=== PATIENT | female | born 1945 | race Caucasian/White ===

== ENCOUNTER → 2017-12-09 | Outpatient (CLI) | payer MEDICARE ==
[2016-03-27 15:27] VITALS: BMI 31.4
[~2017-12-09] MED LIST: ACE500 PO; ACET-2043 PO; ADV500/50 INH; ALBU2.5V36 INH; ALBU5SOL17 NEB; ALBU8.5H IH; ALP1 PO; AMOX1TAB3 PO; ASCO-191 PO; ASPI-715 PO; AUG875 PO; AZI250 PO; BACL-1 PO; BEN100 PO; CA C1TAB6 PO; CALC-767 PO; CEP500 PO; CHOL400T29 PO; CITA-128 PO; CITA-139 PO; CYCL10TA29 PO; DIAZ2TAB72 PO; DICL100G39 TOP; DILSR120 PO; DOCU100C49 PO; DOXY-228 PO; DULO60CA7 PO; GAB300 PO; GABA-549 PO; HYDR-3078 PO; HYDR-3083 PO; HYDR-4225 PO; HYDR-4309 PO; IBUP600T22 PO; LEV500 PO; LEVO-3 PO; LEVO150T78 PO; LEVO175T38 PO; LEVO175T42 PO; LEVO200T44 PO; LISI5TAB25 PO; LOR5/325 PO; MAGN250T34 PO; META800T18 PO; METR-160 PO; MOM PO; MULT-885 PO; OMEP-125 PO; OMEP-218 PO; OND4 PO; ONDA4TAB9 PO; OXYC-865 PO; OXYGEN INH; OXYGENHOME INH; PAIN TOP; PAN40 PO; PER PO; PRE10 PO; PRE20 PO; PRED-1 PO; PRED1TAB17 PO; PRED20TA6 PO; PROM-110 PO; PROM118S PO; ROPI1TAB35 PO; ROPI1TAB36 PO; SCOT TD; SERT-173 PO; TIZA2CAP3 PO; TRA50 PO; TRAM-420 PO; TRAZ-133 PO; TRAZ-156 PO; TRAZ50 PO; ZOL5 PO; [UNRECOGNIZED DRUG - CODE] PO; [UNRECOGNIZED DRUG - OTHER] PO
--- NOTE | 2017-12-09 17:46 | RADIOLOGY IMAGING REPORT ---
FACILITY: [facility] - [place] PATIENT NAME: Simona Arciniega : 1945 MR: [id number] V: [id number] EXAM DATE: ORDERING PHYSICIAN: BREONNA GAMBLE TECHNOLOGIST: Location: [facility] - [place] Patient: Simona Arciniega : 1945 Visit/Account:[id number] Date of Sevice: 12/09/2017 Exam type: VENOUS DOPP LOW RIGHT EXTREMIT History: Pain right posterior knee Comparison: None. Findings: The right lower extremity veins were imaged including the right common femoral vein sufficient femora l vein greater saphenous vein, popliteal vein, posterior tibial vein, peroneal vein and anterior tibi al vein revealing no evidence intraluminal thrombi the veins were compressible and demonstrated flow. Incidentally noted is a 2.4 x 0.6 x 2.3 cm popliteal cyst on the right IMPRESSION: 1. No sonographic evidence DVT involving the right lower extremity veins. 2.4 x 0.6 x 2.3 cm right popliteal cyst Report Dictated By: Hyun Melgoza MD at 12/09/2017 5:40 PM Report E-Signed By: Hyun Melgoza MD at 12/09/2017 5:43 PM WSN:[email or web address]
== END ==
LOC: US 08:00
PROVIDERS: ATTEND Nurse Practitioner Family
DX: M71.21 Synovial cyst of popliteal space [Baker], right knee (principal)

== ENCOUNTER 2017-12-18 05:02 | Emergency (ER) | payer MEDICARE ==
[2016-03-27 15:27] VITALS: Wt 46.7 kg
--- NOTE | 2017-12-18 05:13 | ER Report ---
History and Physical Time Seen By MD: 05:12 Hx. of Stated Complaint: PT FELL FROM STANDING AT 2330 LAST NIGHT. HAS BEEN LAYING ON THE FLOOR SINCE THAT TIME. FINALLY WAS ABLE TO CRAWL TO MEDIC ALERT BUTTON. (TIGRE PUENTES MD) HPI/ROS CHIEF COMPLAINT: fall, neck pain and right side pain HISTORY OF PRESENT ILLNESS: This is a 71 year old female. She fell last night at about 2330 hours. [place] dizzy and lost her balance. She does not know if she lost consciousness with the fall, but did lay on the floor all night and fell asleep a few times. She was finally able to crawl out to her medical alert pendant. She had pain in the right arm and leg. She said that her right arm and leg were not working well and could not use them. It is not clear if this is from pain or a functional deficit. At this time, she is moving her arm and leg. She does have some pain in both arm and leg. This seems worst at the hip and knee area. The patient does indicate that she has chronic arthritis pain in arms and legs, and not sure if it is worse now than usual. She was supposed to come to the hospital this afternoon to get an MRI of her right hip, ordered by her primary care provider, Kelly Brewer. She still feels dizzy whenever she moves her head. She is in a cervical collar at this time. She has no numbness in her arms or legs, but states that she will have her arms and legs fall asleep at times. Clarified that she has not had numbness tonight that she is aware of. She has no numbness in face. She denies weakness at this time. (TIGRE PUENTES MD) Allergies: Coded Allergies: No Known Drug Allergies (Verified , 12/18/17) Home Meds Active Scripts Tramadol Hcl (TRAMADOL HCL) 50 Mg Tablet, 50-100 MG PO Q4-6H Y for pain, #20 TAB Prov:MAGUE WESTON DO 09/03/17 Tramadol Hcl (TRAMADOL HCL) 50 Mg Tablet, 50 MG PO Q4-6H Y for prn, #12 TAB Prov:JANELLE HENDRICKS-C 08/30/17 Baclofen (BACLOFEN) 10 Mg Tablet, 10 MG PO TID Y for prn, #30 TAB Prov:JANELLE HENDRICKS PA-C 08/30/17 Scopolamine (TRANSDERM-SCOP) 1.5 Mg Patch, 1.5 MG TD Q3D Y for DIZZINESS, #3 PATCH Prov:DERECK CAPONE 11/16/16 Promethazine Hcl (PROMETHAZINE HCL) 25 Mg Tablet, 25 MG PO Q8H Y for NAUSEA/ VOMITING, #14 TAB Prov:JACQUELINE HERNÁNDEZ MD 07/01/16 Ropinirole Hcl (ROPINIROLE HCL) 1 Mg Tab, 2 MG PO QHS, #30 TAB Prov:LEIGHA FELIZ DO 04/24/14 Reported Medications Ascorbic Acid (VITAMIN C) 1,000 Mg Tablet, 1000 MG PO BID 07/01/16 Hydroxyzine Hcl (HYDROXYZINE HCL) 25 Mg Tablet, 25 MG PO Q4-6H Y for ANXIETY 07/01/16 Cholecalciferol (Vitamin D3) (VITAMIN D3) 400 Unit Tablet, PO DAILY 07/01/16 Albuterol Sulfate 0.083% (ALBUTEROL SULFATE 0.083%) 2.5 Mg/3 Ml Vial.neb, 2.5 MG INH QID Y for SHORTNESS OF BREATH, INH 07/01/16 [fortify] No Conflict Check, [id number] PO DAILY 07/01/16 Levothyroxine Sodium (LEVOTHYROXINE SODIUM) 100 Mcg Tablet, 300 MCG PO QDAY, TAB 07/01/16 Docusate Sodium (STOOL SOFTENER) 100 Mg Capsule, 200 MG PO BID, CAPSULE 03/08/16 Omeprazole (OMEPRAZOLE) 20 Mg Capsule.dr, 1 CAP PO QDAY, CAP 03/08/16 Oxygen (OXYGEN) Inha, 2.5 L INH NIGHT AND PRN, L 03/08/16 Fexofenadine Hcl (ALLERGY RELIEF) 180 Mg Tablet, 180 MG PO DAILY 01/03/16 Trazodone Hcl (TRAZODONE HCL) 50 Mg Tablet, 1 TAB PO QHS, #270 11/10/15 Duloxetine HCl (Duloxetine HCl) 60 Mg Capsule.dr, 1 TAB PO DAILY, #90 11/10/15 Multivitamin (DAILY VITAMIN) 1 Each Tablet, 1 EACH PO DAILY 09/16/14 Acetaminophen (ACETAMINOPHEN) 500 Mg Tablet, 1000 MG PO Q6H Y for PAIN, TAB 09/16/14 Lisinopril (LISINOPRIL) 5 Mg Tablet, 5 MG PO QDAY 09/24/13 Reviewed Nurses Notes: Yes (TIGRE PUENTES MD) Hx Smoking: No Smoking Status: Never Smoker Exposure to Second Hand Smoke?: No Hx Substance Use Disorder: No Hx Alcohol Use: No (TIGRE PUENTES MD) Constitutional Vital Sign - Last 24 Hours 12/18/17 12/18/17 12/18/17 12/18/17 05:04 05:04 05:17 05:30 Temp 97.7 Pulse 73 71 Resp 12 20 B/P (MAP) 128/59 (82) 128/59 121/59 (79) Pulse Ox 97 O2 Delivery Nasal Cannula 12/18/17 12/18/17 12/18/17 12/18/17 05:37 05:47 06:00 06:17 Pulse 72 63 Resp 13 13 B/P (MAP) 115/58 (77) Pulse Ox 96 98 O2 Flow Rate 3.0 12/18/17 12/18/17 06:49 07:00 B/P (MAP) 114/57 (76) 90/44 (59) (YOMAIRA JIMENEZ MD) Physical Exam General Appearance: The patient is alert. No acute distress. Non-toxic in appearance. She is able to talk to me without difficulty. Eyes: Pupils are equal, round. Reactive to light. No pallor, injection or icterus. Extraocular movements are intact. ENT: Mucous membranes are moist. Normal oral mucosa. Posterior oropharynx is normal. Normal tympanic membranes and canals. Neck: Supple and non tender. Respiratory: Lungs are clear to auscultation. Cardiovascular: Regular rate and rhythm. No murmurs, gallops or rubs. Normal capillary refill. Trace edema in bilateral ankles. Gastrointestinal: Abdomen is soft and non tender. Nondistended. Normal active bowel sounds. Neurological: Alert and oriented x3. Cranial nerve without deficits. No focal neurologic deficits in the extremities. Skin: Warm and dry. Musculoskeletal: c-spine with tenderness in the midline. No pain in the thoracic or lumbar spine. She has pain right shoulder and elbow. She has pain in right hip and knee. No pain on left side. Pelvis negative. No rib pain DIFFERENTIAL DIAGNOSIS: After history and physical exam, differential diagnosis was considered for fall, question syncope, pain in the neck and in the right extremities. Uncertain about full loss of consciousness. Concern for rhabdo as she has been lying on the floor most of the night. ([facility]) Medical Decision Making Data Points Result Diagram: 12/18/17 0532 12/18/17 0532 Laboratory Hematology Test 12/18/17 05:32 12/18/17 05:51 Red Blood Count 4.08 M/uL (4.17-5.56) Mean Corpuscular Volume 93.6 fL (80.0-96.0) Mean Corpuscular Hemoglobin 32.8 pg (26.0-33.0) Mean Corpuscular Hemoglobin Concent 35.0 g/dL (32.0-36.0) Red Cell Distribution Width 13.1 % (11.5-14.5) Mean Platelet Volume 6.9 fL (7.2-11.1) Neutrophils (%) (Auto) 68.7 % (39.4-72.5) Lymphocytes (%) (Auto) 18.2 % (17.6-49.6) Monocytes (%) (Auto) 12.2 % (4.1-12.4) Eosinophils (%) (Auto) 0.7 % (0.4-6.7) Basophils (%) (Auto) 0.2 % (0.3-1.4) Nucleated RBC Relative Count (auto) 0.0 /100WBC Neutrophils # (Auto) 2.6 K/uL (2.0-7.4) Lymphocytes # (Auto) 0.7 K/uL (1.3-3.6) Monocytes # (Auto) 0.5 K/uL (0.3-1.0) Eosinophils # (Auto) 0.0 K/uL (0.0-0.5) Basophils # (Auto) 0.0 K/uL (0.0-0.1) Nucleated RBC Absolute Count (auto) 0.00 K/uL Prothrombin Time 13.3 seconds (12.0-14.4) Prothromb Time International Ratio 1.01 Activated Partial Thromboplast Time 29 seconds (23-35) Sodium Level 137 mmol/L (137-145) Potassium Level 3.9 mmol/L (3.5-5.0) Chloride Level 96 mmol/L (98-107) Carbon Dioxide Level 29 mmol/L (22-31) Blood Urea Nitrogen 22 mg/dl (7-18) Creatinine 0.90 mg/dl (0.52-1.04) Glomerular Filtration Rate Calc > 60.0 Random Glucose 84 mg/dl (75-110) Calcium Level 9.6 mg/dl (8.4-10.2) Total Bilirubin 0.5 mg/dl (0.2-1.3) Aspartate Amino Transf (AST/SGOT) 26 U/L (0-35) Alanine Aminotransferase (ALT/SGPT) 32 U/L (0-56) Alkaline Phosphatase 72 U/L (0-126) Total Creatine Kinase 196 U/L (30-135) Troponin I < 0.012 ng/ml Total Protein 6.6 gm/dl (6.3-8.2) Albumin 3.7 g/dl (3.5-5.0) Urine Color Straw Urine Clarity Clear Urine pH 6.0 pH (4.8-9.5) Urine Specific [place] 1.008 Urine Protein Negative mg/dL (NEGATIVE) Urine Glucose (UA) Negative mg/dL (NEGATIVE) Urine Ketones Negative mg/dL (NEGATIVE) Urine Blood Negative (NEGATIVE) Urine Nitrite Negative (NEGATIVE) Urine Bilirubin Negative (NEGATIVE) Urine Urobilinogen Negative mg/dL (0.2-1.9) Urine Leukocyte Esterase Negative (NEGATIVE) Urine RBC None /HPF (0-2/HPF) Urine WBC None /HPF (0-5/HPF) Urine Squamous Epithelial Cells None /LPF (NONE-FEW) Urine Bacteria Negative /HPF (NONE-FEW) Urine Mucus None /HPF (NONE-FEW) Chemistry Test 12/18/17 05:32 12/18/17 05:51 White Blood Count 3.7 k/uL (4.5-11.0) Red Blood Count 4.08 M/uL (4.17-5.56) Hemoglobin 13.4 g/dL (12.0-16.0) Hematocrit 38.2 % (34.0-47.0) Mean Corpuscular Volume 93.6 fL (80.0-96.0) Mean Corpuscular Hemoglobin 32.8 pg (26.0-33.0) Mean Corpuscular Hemoglobin Concent 35.0 g/dL (32.0-36.0) Red Cell Distribution Width 13.1 % (11.5-14.5) Platelet Count 164 K/uL (150-450) Mean Platelet Volume 6.9 fL (7.2-11.1) Neutrophils (%) (Auto) 68.7 % (39.4-72.5) Lymphocytes (%) (Auto) 18.2 % (17.6-49.6) Monocytes (%) (Auto) 12.2 % (4.1-12.4) Eosinophils (%) (Auto) 0.7 % (0.4-6.7) Basophils (%) (Auto) 0.2 % (0.3-1.4) Nucleated RBC Relative Count (auto) 0.0 /100WBC Neutrophils # (Auto) 2.6 K/uL (2.0-7.4) Lymphocytes # (Auto) 0.7 K/uL (1.3-3.6) Monocytes # (Auto) 0.5 K/uL (0.3-1.0) Eosinophils # (Auto) 0.0 K/uL (0.0-0.5) Basophils # (Auto) 0.0 K/uL (0.0-0.1) Nucleated RBC Absolute Count (auto) 0.00 K/uL Prothrombin Time 13.3 seconds (12.0-14.4) Prothromb Time International Ratio 1.01 Activated Partial Thromboplast Time 29 seconds (23-35) Glomerular Filtration Rate Calc > 60.0 Calcium Level 9.6 mg/dl (8.4-10.2) Total Bilirubin 0.5 mg/dl (0.2-1.3) Aspartate Amino Transf (AST/SGOT) 26 U/L (0-35) Alanine Aminotransferase (ALT/SGPT) 32 U/L (0-56) Alkaline Phosphatase 72 U/L (0-126) Total Creatine Kinase 196 U/L (30-135) Troponin I < 0.012 ng/ml Total Protein 6.6 gm/dl (6.3-8.2) Albumin 3.7 g/dl (3.5-5.0) Urine Color Straw Urine Clarity Clear Urine pH 6.0 pH (4.8-9.5) Urine Specific [place] 1.008 Urine Protein Negative mg/dL (NEGATIVE) Urine Glucose (UA) Negative mg/dL (NEGATIVE) Urine Ketones Negative mg/dL (NEGATIVE) Urine Blood Negative (NEGATIVE) Urine Nitrite Negative (NEGATIVE) Urine Bilirubin Negative (NEGATIVE) Urine Urobilinogen Negative mg/dL (0.2-1.9) Urine Leukocyte Esterase Negative (NEGATIVE) Urine RBC None /HPF (0-2/HPF) Urine WBC None /HPF (0-5/HPF) Urine Squamous Epithelial Cells None /LPF (NONE-FEW) Urine Bacteria Negative /HPF (NONE-FEW) Urine Mucus None /HPF (NONE-FEW) Coagulation Test 12/18/17 05:32 Prothrombin Time 13.3 seconds Prothromb Time International Ratio 1.01 Activated Partial Thromboplast Time 29 seconds Urinalysis Test 12/18/17 05:51 Urine Color Straw Urine Clarity Clear Urine pH 6.0 pH (4.8-9.5) Urine Specific [place] 1.008 Urine Protein Negative mg/dL (NEGATIVE) Urine Glucose (UA) Negative mg/dL (NEGATIVE) Urine Ketones Negative mg/dL (NEGATIVE) Urine Blood Negative (NEGATIVE) Urine Nitrite Negative (NEGATIVE) Urine Bilirubin Negative (NEGATIVE) Urine Urobilinogen Negative mg/dL (0.2-1.9) Urine Leukocyte Esterase Negative (NEGATIVE) Urine RBC None /HPF (0-2/HPF) Urine WBC None /HPF (0-5/HPF) Urine Squamous Epithelial Cells None /LPF (NONE-FEW) Urine Bacteria Negative /HPF (NONE-FEW) Urine Mucus None /HPF (NONE-FEW) (YOMAIRA JIMENEZ MD) EKG/Imaging EKG Interpretation 12 lead EKG: Rhythm: normal sinus rhythm, rate 71 [place]: normal QRS: normal ST segments: normal (TIGRE PUENTES MD) ED Course/Re-evaluation Clinical Indication for ER IV: IV Access (TIGRE PUENTES MD) ED Course ED clinical course medical decision making 8-year-old female fall from standing had C-spine chest abdomen pelvis T and L-spine CTs including multiple x-rays were performed negative for any fractures dislocation subluxation or abnormality she'll be ambulatory prior to discharge discharged back to care facility with fall precautions Decision to Disposition Date: Dec 18, 2017 Decision to Disposition Time: 08:19 (YOMAIRA JIMENEZ MD) Depart Departure Latest Vital Signs Vital Signs Date Time Temp Pulse Resp B/P (MAP) Pulse Ox O2 Delivery O2 Flow Rate FiO2 12/18/17 07:00 90/44 (59) 12/18/17 06:17 63 13 98 12/18/17 05:37 3.0 12/18/17 05:04 97.7 Nasal Cannula (YOMAIRA JIMENEZ MD) Impression: Primary Impression: Fall Condition: Improved Disposition: HOME OR SELF-CARE Referrals: KELLY BREWER (PCP) 5 Days Patient Instructions: Fall Prevention (DC) TIGRE PUENTES MD Dec 18, 2017 05:13 YOMAIRA JIMENEZ MD Dec 18, 2017 08:21
--- NOTE | 2017-12-18 05:24 | EKG ---
FACILITY: [facility] PATIENT NAME: ROSALINDA WILLSON : [id number] MR: [id number] V: [id number] EXAM DATE: ORDERING PHYSICIAN: TIGRE PUENTES TECHNOLOGIST: HAMZAH Test Reason : NEURO Blood Pressure : / mmHG Vent. Rate : 071 BPM Atrial Rate : 071 BPM P-R Int : 152 ms QRS Dur : 076 ms QT Int : 414 ms P-R-T Axes : 063 036 063 degrees QTc Int : 449 ms Sinus rhythm Possible left atrial enlargement Decreased R wave progression anteriorly Nonspecific ST findings inferior leads Confirmed by MATTHEW GRIFFIN ([id number]) on 12/18/2017 6:44:02 AM Referred By: Confirmed By:MATTHEW GRIFFIN
[2017-12-18] MEDS ORDERED: IOPAMIDOL 76% 75 ML INFUS BTL 75 ML ONE (05:33)
[2017-12-18 05:38] LABS: PLATELET COUNT, AUTOMATED 164 K/uL (150-450)
[2017-12-18 05:51] LABS: INR 1.01
--- NOTE | 2017-12-18 06:13 | RADIOLOGY IMAGING REPORT ---
FACILITY: [facility] - [place] PATIENT NAME: Simona Arciniega : 1945 MR: [id number] V: [id number] EXAM DATE: ORDERING PHYSICIAN: TIGRE PUENTES TECHNOLOGIST: Location: [facility] - [place] Patient: Simona Arciniega : 1945 Visit/Account:[id number] Date of Sevice: 12/18/2017 CHEST SINGLE AP 12/18/2017 05:13 hours. HISTORY: Fall. Right hip pain. COMPARISON: 11/16/2016 and studies dating to 10/07/2005. TECHNIQUE: Portable AP view of the chest. FINDINGS: Tubes/lines/hardware: There are a partially visualized plate and screws from anterior cervical fusion . There are external chest leads. Pulmonary: There is elevation the right hemidiaphragm, unchanged. Lungs are clear. Vasculature is acc entuated due to supine AP radiograph. There is no pneumothorax or pleural effusion. Cardiomediastinal: Cardiac and mediastinal silhouettes are within normal limits. There is mild aortic calcification. Bones/soft tissues: No acute osseous abnormality. The visible abdomen is normal. There are surgical c lips in the right upper quadrant. IMPRESSION: 1. No acute cardiopulmonary process. Report Dictated By: Margot Bell at 12/18/2017 6:06 AM Report E-Signed By: Margot Bell at 12/18/2017 6:08 AM WSN:[id number]
--- NOTE | 2017-12-18 06:14 | RADIOLOGY IMAGING REPORT ---
FACILITY: [facility] - [place] PATIENT NAME: Simona Arciniega : 1945 MR: [id number] V: [id number] EXAM DATE: ORDERING PHYSICIAN: TIGRE PUENTES TECHNOLOGIST: Location: [facility] - [place] Patient: Simona Arciniega : 1945 Visit/Account:[id number] Date of Sevice: 12/18/2017 HIP RIGHT HISTORY: Fall. Right hip pain. COMPARISON: CT abdomen and pelvis 07/01/2016. There are bilateral hip x-rays from 03/04/2014, the imag es are not currently available. TECHNIQUE: AP view of the pelvis and crosstable lateral view of the right hip. FINDINGS: There is motion artifact on the crosstable lateral view, and the patient's pannus projects over the femoral head and neck, mildly limiting evaluation. There is no fracture or dislocation. The sacroiliac joints are patent without widening. There is no pubic diastases. There are pelvic phleboli ths. There is moderate to severe degenerative change of the visible lumbar spine. IMPRESSION: 1. No acute osseous abnormality of the right hip. Report Dictated By: Margot Bell at 12/18/2017 6:08 AM Report E-Signed By: Margot Bell at 12/18/2017 6:11 AM WSN:[id number]
--- NOTE | 2017-12-18 07:37 | RADIOLOGY IMAGING REPORT ---
FACILITY: [facility] - [place] PATIENT NAME: Simona Arciniega : 1945 MR: [id number] V: [id number] EXAM DATE: ORDERING PHYSICIAN: TIGRE PUENTES TECHNOLOGIST: [place] [facility] [place]ona Arciniega : 1945 Visit/Account:[id number] Date of Sevice: 12/18/[address]: Indication: Injury. Technique: Contiguous axial sections were obtained from the base to the vertex without contrast enhan cement. One of the following dose optimization techniques was utilized in the performance of this exam: Autom ated exposure control; adjustment of the mA and/or kV according to the patient's size; or use of an i terative reconstruction technique. Specific details can be referenced in the facility's radiology CT exam operational policy. Comparison: 11/16/2016 Findings: There is no evidence of intra-axial or extra-axial hemorrhage. No focal areas of decreased or increased attenuation are identified. There is no evidence of mass, edema, or shift of the midline structures. The size, shape, and configuration of the ventricular system are normal. The skeletal st ructures are intact and unremarkable. There is no evidence of fracture or other acute deformity. The visualized paranasal sinuses and mastoid air cells are clear. Impression: No acute deformity or significant change. Report Dictated By: Og Poe MD at 12/18/2017 7:28 AM Report E-Signed By: Og Poe MD at 12/18/2017 7:32 AM WSN:[id number]
--- NOTE | 2017-12-18 07:41 | RADIOLOGY IMAGING REPORT ---
FACILITY: [facility] PATIENT NAME: Simona Arciniega : 1945 MR: [id number] V: [id number] EXAM DATE: ORDERING PHYSICIAN: TIGRE PUENTES TECHNOLOGIST: Location: [facility] Patient: Simona Arciniega : 1945 Visit/Account:[id number] Date of Sevice: 12/18/2017 CT of the cervical spine without contrast: Indication: Injury. Technique: Helical CT was performed from the base of the skull through the upper thoracic spine witho ut contrast. Axial, coronal, and sagittal reconstructions are reviewed. One of the following dose optimization techniques was utilized in the performance of this exam: Autom ated exposure control; adjustment of the mA and/or kV according to the patient's size; or use of an i terative reconstruction technique. Specific details can be referenced in the facility's radiology C T exam operational policy. Comparison: 08/30/2017 Findings: There is no evidence of fracture, compression, subluxation, or other acute deformity. There are stable postoperative changes related to anterior fusion from C5 through C7. There are stable deg enerative changes at C1-C2 and in the posterior elements throughout the cervical region. There is uni form mineralization. The skeletal structures are otherwise unremarkable. No paraspinal soft tissue ab normalities are identified. IMPRESSION: No evidence of fracture or acute deformity. No significant change. Report Dictated By: Og Poe MD at 12/18/2017 7:32 AM Report E-Signed By: Og Poe MD at 12/18/2017 7:37 AM WSN:[id number]
[2017-12-18 08:00] VITALS: BP 93/44
--- NOTE | 2017-12-18 08:01 | RADIOLOGY IMAGING REPORT ---
FACILITY: [facility] - [place] PATIENT NAME: Simona Arciniega : 1945 MR: [id number] V: [id number] EXAM DATE: ORDERING PHYSICIAN: TIGRE PUENTES TECHNOLOGIST: Location: [facility] [place] Patient: Simona Arciniega : 1945 Visit/Account:[id number] Date of Sevice: 12/18/2017 CT of the chest, abdomen, and pelvis with contrast and reconstructed images of the thoracic spine and lumbar spine: Indication: Injury. Technique: Helical CT was performed through the chest, abdomen, and pelvis following IV contrast enha ncement with 75 cc of Isovue-[id number]. Multiplanar reconstructions are reviewed. One of the following dose optimization techniques was utilized in the performance of this exam: Autom ated exposure control; adjustment of the mA and/or kV according to the patient's size; or use of an i terative reconstruction technique. Specific details can be referenced in the facility's radiology C T exam operational policy. Comparison: 07/01/2016 Findings: Lungs: There is linear parenchymal opacity at the right lung base, compatible with atelectasis. No ot her focal parenchymal opacities are identified. Pleural spaces: There is no evidence of effusion, focal pleural thickening, or pneumothorax. Mediastinum: There is uniform enhancement of the vascular structures. There are no signs of vascular injury. Mild atherosclerotic calcification is observed in the aortic arch. There is atherosclerotic calcification in coronary arteries. The heart size is normal. There is no ev idence of pericardial effusion or soft tissue abnormality. There are no signs of mediastinal hematoma or soft tissue abnormality. Liver: Normal in size, shape, and density. The venous structures are unremarkable, as visualized. Gallbladder and biliary tree: There are surgical clips related to prior cholecystectomy. There is no significant dilatation of the biliary tree. Pancreas: Atrophic, but otherwise unremarkable. Spleen: Normal in size, shape, and density. Adrenal glands: Within normal limits. Kidneys: Normal in size, shape, and density. There are no signs of obstruction. Intestinal structures: Mild diverticulosis in the sigmoid colon appears unchanged. The intestinal str uctures are otherwise unremarkable, as visualized. Urinary bladder: Intact and unremarkable. The lumen appears homogeneous. Pelvic structures: The uterus is absent. There is no evidence of fluid collection or soft tissue abno rmality in the pelvis. Ascites or fluid collections: None seen. Skeletal structures: There are mild/moderate degenerative changes in the thoracic spine. No fracture, subluxation, or or a cute compression deformity is identified. There are no signs of paraspinal soft tissue swelling or he matoma. There is a chronic moderate compression deformity of the L4 vertebral body, unchanged from 2016. No n ew compression fracture, subluxation, or other acute deformity is otherwise noted in the lumbar spine . There are no signs of paraspinal soft tissue swelling or hematoma. The skeletal structures are otherwise intact and unremarkable. There is normal mineralization. No gaurav tructive skeletal lesions are identified. . IMPRESSION: No acute deformity is clearly identified in the chest, abdomen, pelvis, thoracic spine, o r lumbar spine. Report Dictated By: Og Poe MD at 12/18/2017 7:37 AM Report E-Signed By: Og Poe MD at 12/18/2017 7:57 AM WSN:[id number]
--- NOTE | 2017-12-18 08:02 | RADIOLOGY IMAGING REPORT ---
FACILITY: [facility] - [place] PATIENT NAME: Simona Arciniega : 1945 MR: [id number] V: [id number] EXAM DATE: ORDERING PHYSICIAN: TIGRE PUENTES TECHNOLOGIST: Location: [facility] Patient: Simona Arciniega : 1945 Visit/Account:[id number] Date of Sevice: 12/18/2017 CT of the chest, abdomen, and pelvis with contrast and reconstructed images of the thoracic spine and lumbar spine: Indication: Injury. Technique: Helical CT was performed through the chest, abdomen, and pelvis following IV contrast enha ncement with 75 cc of Isovue-370. Multiplanar reconstructions are reviewed. One of the following dose optimization techniques was utilized in the performance of this exam: Autom ated exposure control; adjustment of the mA and/or kV according to the patient's size; or use of an i terative reconstruction technique. Specific details can be referenced in the facility's radiology C T exam operational policy. Comparison: 07/01/2016 Findings: Lungs: There is linear parenchymal opacity at the right lung base, compatible with atelectasis. No ot her focal parenchymal opacities are identified. Pleural spaces: There is no evidence of effusion, focal pleural thickening, or pneumothorax. Mediastinum: There is uniform enhancement of the vascular structures. There are no signs of vascular injury. Mild atherosclerotic calcification is observed in the aortic arch. There is atherosclerotic calcification in coronary arteries. The heart size is normal. There is no ev idence of pericardial effusion or soft tissue abnormality. There are no signs of mediastinal hematoma or soft tissue abnormality. Liver: Normal in size, shape, and density. The venous structures are unremarkable, as visualized. Gallbladder and biliary tree: There are surgical clips related to prior cholecystectomy. There is no significant dilatation of the biliary tree. Pancreas: Atrophic, but otherwise unremarkable. Spleen: Normal in size, shape, and density. Adrenal glands: Within normal limits. Kidneys: Normal in size, shape, and density. There are no signs of obstruction. Intestinal structures: Mild diverticulosis in the sigmoid colon appears unchanged. The intestinal str uctures are otherwise unremarkable, as visualized. Urinary bladder: Intact and unremarkable. The lumen appears homogeneous. Pelvic structures: The uterus is absent. There is no evidence of fluid collection or soft tissue abno rmality in the pelvis. Ascites or fluid collections: None seen. Skeletal structures: There are mild/moderate degenerative changes in the thoracic spine. No fracture, subluxation, or or a cute compression deformity is identified. There are no signs of paraspinal soft tissue swelling or he matoma. There is a chronic moderate compression deformity of the L4 vertebral body, unchanged from 2016. No n ew compression fracture, subluxation, or other acute deformity is otherwise noted in the lumbar spine . There are no signs of paraspinal soft tissue swelling or hematoma. The skeletal structures are otherwise intact and unremarkable. There is normal mineralization. No gaurav tructive skeletal lesions are identified. . IMPRESSION: No acute deformity is clearly identified in the chest, abdomen, pelvis, thoracic spine, o r lumbar spine. Report Dictated By: Og Poe MD at 12/18/2017 7:37 AM Report E-Signed By: Og Poe MD at 12/18/2017 7:57 AM WSN:[id number]
--- NOTE | 2017-12-18 08:02 | RADIOLOGY IMAGING REPORT ---
FACILITY: [facility] PATIENT NAME: Simona Arciniega : 1945 MR: [id number] V: [id number] EXAM DATE: ORDERING PHYSICIAN: TIGRE PUENTES TECHNOLOGIST: Location: [facility] [place] Patient: Simona Arciniega : 1945 Visit/Account:[id number] Date of Sevice: 12/18/2017 CT of the chest, abdomen, and pelvis with contrast and reconstructed images of the thoracic spine and lumbar spine: Indication: Injury. Technique: Helical CT was performed through the chest, abdomen, and pelvis following IV contrast enha ncement with 75 cc of Isovue-370. Multiplanar reconstructions are reviewed. One of the following dose optimization techniques was utilized in the performance of this exam: Autom ated exposure control; adjustment of the mA and/or kV according to the patient's size; or use of an i terative reconstruction technique. Specific details can be referenced in the facility's radiology C T exam operational policy. Comparison: 07/01/2016 Findings: Lungs: There is linear parenchymal opacity at the right lung base, compatible with atelectasis. No ot her focal parenchymal opacities are identified. Pleural spaces: There is no evidence of effusion, focal pleural thickening, or pneumothorax. Mediastinum: There is uniform enhancement of the vascular structures. There are no signs of vascular injury. Mild atherosclerotic calcification is observed in the aortic arch. There is atherosclerotic calcification in coronary arteries. The heart size is normal. There is no ev idence of pericardial effusion or soft tissue abnormality. There are no signs of mediastinal hematoma or soft tissue abnormality. Liver: Normal in size, shape, and density. The venous structures are unremarkable, as visualized. Gallbladder and biliary tree: There are surgical clips related to prior cholecystectomy. There is no significant dilatation of the biliary tree. Pancreas: Atrophic, but otherwise unremarkable. Spleen: Normal in size, shape, and density. Adrenal glands: Within normal limits. Kidneys: Normal in size, shape, and density. There are no signs of obstruction. Intestinal structures: Mild diverticulosis in the sigmoid colon appears unchanged. The intestinal str uctures are otherwise unremarkable, as visualized. Urinary bladder: Intact and unremarkable. The lumen appears homogeneous. Pelvic structures: The uterus is absent. There is no evidence of fluid collection or soft tissue abno rmality in the pelvis. Ascites or fluid collections: None seen. Skeletal structures: There are mild/moderate degenerative changes in the thoracic spine. No fracture, subluxation, or or a cute compression deformity is identified. There are no signs of paraspinal soft tissue swelling or he matoma. There is a chronic moderate compression deformity of the L4 vertebral body, unchanged from 2016. No n ew compression fracture, subluxation, or other acute deformity is otherwise noted in the lumbar spine . There are no signs of paraspinal soft tissue swelling or hematoma. The skeletal structures are otherwise intact and unremarkable. There is normal mineralization. No gaurav tructive skeletal lesions are identified. . IMPRESSION: No acute deformity is clearly identified in the chest, abdomen, pelvis, thoracic spine, o r lumbar spine. Report Dictated By: Og Poe MD at 12/18/2017 7:37 AM Report E-Signed By: Og Poe MD at 12/18/2017 7:57 AM WSN:[id number]
--- NOTE | 2017-12-18 08:03 | RADIOLOGY IMAGING REPORT ---
FACILITY: [facility] PATIENT NAME: Simona Arciniega : 1945 MR: [id number] V: [id number] EXAM DATE: ORDERING PHYSICIAN: TIGRE PUENTES TECHNOLOGIST: Location: [facility] Patient: Simona Arciniega : 1945 Visit/Account:[id number] Date of Sevice: 12/18/2017 RIGHT SHOULDER: Indication: Injury. Technique: 2 views were obtained. Comparison: None. Findings: There is no evidence of fracture, subluxation, or other acute deformity. There are mild deg enerative changes in the acromioclavicular joint. There is uniform mineralization of the skeletal str uctures. No periarticular calcifications or soft tissue abnormalities are identified. IMPRESSION: Negative right shoulder. Report Dictated By: Og Poe MD at 12/18/2017 7:57 AM Report E-Signed By: Og Poe MD at 12/18/2017 7:59 AM WSN:[id number]
--- NOTE | 2017-12-18 08:04 | RADIOLOGY IMAGING REPORT ---
FACILITY: [facility] PATIENT NAME: Simona Arciniega : 1945 MR: [id number] V: [id number] EXAM DATE: ORDERING PHYSICIAN: TIGRE PUENTES TECHNOLOGIST: Location: [facility] - [place], [place] Patient: Simona Arciniega : 1945 Visit/Account:[id number] Date of Sevice: 12/18/2017 RIGHT KNEE: Indication: Injury. Technique: 4 views of the knee were obtained. Comparison: None. Findings: There is no evidence of fracture, dislocation, or other acute deformity. There is mild oste oarthritic joint space narrowing. There is normal mineralization of the skeletal structures. The caitlin articular soft tissues appear unremarkable. IMPRESSION: Mild osteoarthritis. No acute deformity. Report Dictated By: Og Poe MD at 12/18/2017 7:59 AM Report E-Signed By: Og Poe MD at 12/18/2017 8:00 AM WSN:[id number]
--- NOTE | 2017-12-18 08:06 | RADIOLOGY IMAGING REPORT ---
FACILITY: [facility] [place] PATIENT NAME: Simona Arciniega : 1945 MR: [id number] V: [id number] EXAM DATE: ORDERING PHYSICIAN: TIGRE PUENTES TECHNOLOGIST: Location: [facility] [place] Patient: Simona Arciniega : 1945 Visit/Account:[id number] Date of Sevice: 12/18/2017 RIGHT ELBOW: Indication: Injury. Technique: 3 views were obtained. Comparison: None. Findings: There are no signs of fracture, subluxation, or other acute deformity. There are degenerati ve changes around the radial head and coronoid process of the ulna. There is uniform mineralization o f the skeletal structures. There is no evidence of joint effusion or periarticular soft tissue abnorm ality. IMPRESSION: Osteoarthritis. No acute deformity. Report Dictated By: Og Poe MD at 12/18/2017 8:00 AM Report E-Signed By: Og Poe MD at 12/18/2017 8:02 AM WSN:[id number]
== END 2017-12-18 08:34 | disposition home or self-care (01) ==
LOC: ER 05:11
DX: M54.2 Cervicalgia (principal); M79.601 Pain in right arm; M79.604 Pain in right leg; W18.30XA Fall on same level, unspecified, initial encounter
CPT/HCPCS: 36415; 70450; 71045; 71260; 72125; 72129; 72132; 73030; 73080; 73502; 73564; 74177; 81001; 82550; 84484; 85025; 85610; 85730; 93005; 99284; A4353; Q9967; 82040; 82247; 82310; 82374; 82435; 82565; 82947; 84075; 84132; 84155; 84295; 84450; 84460; 84520

== ENCOUNTER → 2017-12-18 | Outpatient (CLI) | payer MEDICARE ==
[2016-03-27 15:27] VITALS: BMI 31.4
[~2017-12-18] MED LIST changes: -CITA-139 PO; +CITA-145 PO
== END ==
LOC: AMB 04:25
PROVIDERS: ATTEND Nurse Practitioner
DX: M25.551 Pain in right hip (principal); M54.2 Cervicalgia; M54.6 Pain in thoracic spine; W18.11XA Fall from or off toilet without subsequent striking against object, initial encounter
CPT/HCPCS: A0425; A0427

== ENCOUNTER → 2017-12-18 | Outpatient (CLI) | payer MEDICARE ==
[2016-03-27 15:27] VITALS: BMI 31.4
[~2017-12-18] MED LIST changes: +CITA-139 PO; -CITA-145 PO
--- NOTE | 2017-12-18 11:56 | RADIOLOGY IMAGING REPORT ---
FACILITY: [facility] PATIENT NAME: Simona Arciniega : 1945 MR: [id number] V: [id number] EXAM DATE: ORDERING PHYSICIAN: BREONNA GAMBLE TECHNOLOGIST: Location: [facility] [place] Patient: Simona Arciniega : 1945 Visit/Account:[id number] Date of Sevice: 12/18/2017 L SPINE W/O CONTRAST COMPARISON: Report from previous exam dated May 24, 2016 Additional pertinent history: Low back pain with radiculopathy and sciatica worse on the right side. Technique: Multiplanar multisequence lumbar spine MRI was performed without gadolinium enhancement. FINDINGS: Vertebral body heights and alignment: Mild to moderate loss of height at the level of L4 Vertebral marrow signal: Mild type I degenerative endplate changes at T11-T12. Distal thoracic cord and conus: Negative. The conus ends at L1-L2. Surrounding soft tissues: Negative. Inspection of the disc spaces reveal the following: L5-S1: Posterior broad-based disc protrusion with facet hypertrophic changes. Moderate bilateral no ral foraminal narrowing with moderate canal stenosis. L4-L5: Posterior broad-based disc protrusion with facet hypertrophic changes. Moderate bilateral no ral foraminal narrowing with mild canal stenosis. L3-L4: Posterior broad-based disc protrusion with ligamentum flavum and facet overgrowth. Moderate c anal stenosis and moderate to severe bilateral neural foraminal narrowing. L2-L3: Posterior broad-based disc protrusion with facet hypertrophic changes. Moderate bilateral no ral foraminal narrowing with mild canal stenosis. L1-L2: Circumferential disc bulging without significant canal or neural foraminal narrowing. T12-L1: Negative. IMPRESSION: 1. Remote appearing mild to moderate compression deformity at the level of L4. 2. Multilevel spondylitic change as discussed above. 3. Findings of moderate canal stenosis at L3-L4 and L5-S1. 4. Multilevel neural foraminal narrowing felt to be potentially most significant at L3-L4 with moder ate to severe bilateral neural foraminal narrowing. Report Dictated By: Federico Mendieta MD at 12/18/2017 11:48 AM Report E-Signed By: Federico Mendieta MD at 12/18/2017 11:52 AM WSN:[id number]
== END ==
LOC: MRI 01:03
PROVIDERS: ATTEND Nurse Practitioner Family
DX: M48.54XA Collapsed vertebra, not elsewhere classified, thoracic region, initial encounter for fracture (principal); M48.07 Spinal stenosis, lumbosacral region
CPT/HCPCS: 72148

== ENCOUNTER → 2018-05-05 | Outpatient (CLI) | payer MEDICARE ==
[2016-03-27 15:27] VITALS: BMI 31.4
[~2018-05-05] MED LIST changes: -CITA-139 PO; +CITA-145 PO; -TRAZ-156 PO; +TRAZ50TA34 PO
--- NOTE | 2018-05-05 20:19 | RADIOLOGY IMAGING REPORT ---
FACILITY: [facility] PATIENT NAME: Simona Arciniega : 1945 MR: [id number] V: [id number] EXAM DATE: ORDERING PHYSICIAN: BREONNA GAMBLE TECHNOLOGIST: Location: [facility] [place] Patient: Simona Arciniega : 1945 Visit/Account:[id number] Date of Sevice: 05/05/2018 CHEST PA AND LAT COMPARISONS: Single view chest dated December 18, 2017 ADDITIONAL PERTINENT HISTORY: Shortness of breath and cough with fever. FINDINGS: Cardiomediastinal silhouette: Negative. Pulmonary vasculature: Mild atherosclerotic disease of the thoracic aortic arch. Otherwise negative Lung pena: Negative. Pleural spaces: Negative. Osseous structures: Patient status post previous anterior interbody fusion of the lower cervical spi ne. Surrounding soft tissues: Negative. IMPRESSION: No evidence of acute cardiopulmonary disease. Report Dictated By: Federico Mendieta MD at 05/05/2018 8:13 PM Report E-Signed By: Federico Mendieta MD at 05/05/2018 8:14 PM WSN:[id number]
== END ==
LOC: RAD 16:00
PROVIDERS: ATTEND Nurse Practitioner Family
DX: R07.9 Chest pain, unspecified (principal); R05 Cough; R52 Pain, unspecified; R50.9 Fever, unspecified; R06.00 Dyspnea, unspecified; R79.89 Other specified abnormal findings of blood chemistry
CPT/HCPCS: 71046

== ENCOUNTER → 2018-05-22 | Outpatient (CLI) | payer MEDICARE ==
[2016-03-27 15:27] VITALS: BMI 31.4
[~2018-05-22] MED LIST changes: +REGADENOSON 0.4 MG/5 ML SYR ONE
--- NOTE | 2018-05-22 15:47 | RT STRESS TEST REPORT ---
FACILITY: [facility] PATIENT NAME: ROSALINDA WILLSON : [id number] MR: [id number] V: [id number] EXAM DATE: ORDERING PHYSICIAN: BREONNA GAMBLE TECHNOLOGIST: [employer] Time: 2018-05-22 09:27:44 Total Exercise Time: 00:01:00 Test Indications: Dizzy Spells Medications: SEE NUCLEAR MED SHEET Protocol: LEXISCAN Max HR: 092 BPM 61% of Pred: 149 BPM Max BP: 130/061 mmHG Max Work Load: 1.0 METS Baseline EKG NSR with T wave inversion in AVL which did not change during the test No symptoms suggestive of ischemia noted Impression: No EKG changes to suggest ischemia Nuclear medicine report to follow Confirmed by JAZMÍN DUARTE ([id number]) on 05/22/2018 3:46:59 PM Referred By: Overread By: JAZMÍN DUARTE
--- NOTE | 2018-05-22 16:27 | RADIOLOGY IMAGING REPORT ---
FACILITY: [facility] [place] PATIENT NAME: Simona Arciniega : 1945 MR: [id number] V: [id number] EXAM DATE: ORDERING PHYSICIAN: BREONNA GAMBLE TECHNOLOGIST: Location: [facility] [place] Patient: Simona Arciniega : 1945 Visit/Account:[id number] Date of Sevice: 05/22/2018 EXAMINATION: Single isotope SPECT imaging with regadenoson infusion and gated SPECT imaging. DATE OF EXAMINATION: 05/22/18. DATE OF INTERPRETATION: 05/22/18. REQUESTING PHYSICIAN: BREONNA GAMBLE. INDICATION: The patient is a 72-year-old female evaluated for CAD. PROCEDURE: After informed consent the patient received an intravenous injection of 11.4 mCi of Tc-99 m sestamibi followed at an appropriate time interval by rest imaging. The patient then subsequently received an intravenous infusion of 0.4 mg of regadenoson per protocol without complication. Resting heart rate was 69 bpm with a peak heart rate of 92 bpm. Blood pressure at rest was 130 / 61 and fol lowing infusion was 130 / 61. Baseline EKG demonstrates NSR. There were no EKG changes of ischemia following infusion. Symptoms were nonspecific. The patient then received an intravenous injection o f 30.1 mCi of Tc-99m sestamibi followed by stress imaging. RAW DATA: Examination of the summed raw data revealed a fair quality study. There is significant GI uptake interfering with the inferior wall. MYOCARDIAL PERFUSION: The tomographic images demonstrate normal perfusion with inferior wall not wel l seen secondary to GI uptake. GATED IMAGES: The gated images demonstrate a normal EF at 55% with normal wall motion. IMPRESSION: 1. EKG is normal without diagnostic changes with stress. 2. Probably normal myocardial perfusion scan. Significant inferior wall artifact is noted. 3. Normal LV systolic function; LVEF 55%. 4. Based on the results of this exam, the patient appears to be at low risk for future cardiovascular events. Clinical correlation recommended given artifact. Report Dictated By: Dexter Santamaria MD at 05/22/2018 4:17 PM Report E-Signed By: Dexter Santamaria MD at 05/22/2018 4:22 PM WSN:[id number]
== END ==
LOC: NUC 00:52
PROVIDERS: ATTEND Nurse Practitioner Family
DX: R07.9 Chest pain, unspecified (principal); R06.00 Dyspnea, unspecified; R53.81 Other malaise
CPT/HCPCS: 78452; 93017; A9500; J2785

== ENCOUNTER → 2018-06-05 | Outpatient (CLI) | payer MEDICARE ==
[2016-03-27 15:27] VITALS: BMI 31.4
[~2018-06-05] MED LIST changes: -REGADENOSON 0.4 MG/5 ML SYR ONE
== END ==
LOC: RESP 00:33
PROVIDERS: ATTEND Nurse Practitioner Family
DX: J96.20 Acute and chronic respiratory failure, unspecified whether with hypoxia or hypercapnia (principal); J44.9 Chronic obstructive pulmonary disease, unspecified; R05 Cough
CPT/HCPCS: 94060; 94726; 94729

== ENCOUNTER 2018-08-17 15:08 | Emergency (ER) | payer MEDICARE ==
[2016-03-27 15:27] VITALS: Wt 63.5 kg
[~2018-08-17 15:08] MED LIST changes: -HYDR-4309 PO; +HYDR-653 PO; -METR-160 PO; +METR500T54 PO
--- NOTE | 2018-08-17 15:17 | ER Report ---
History and Physical Time Seen By MD: 15:17 HPI/ROS CHIEF COMPLAINT: cough and fever HISTORY OF PRESENT ILLNESS: PT started 2 weeks ago with nasal congestion and sinus pressure. was using sudafed 12 hour and was not helping. Moved into her chest. + cough. Pt using guiafenesin and dextromethophan with no relief. Saturday started wtih fever and chills. Cough at night is productive. Today having trouble catching her breath. PT has cp with coughing. REVIEW OF SYSTEMS: Constitutional: + fever, + chills. Eyes: No discharge. ENT: No sore throat. Cardiovascular: No chest pain, no palpitations. Respiratory: + cough, + shortness of breath. Gastrointestinal: No abdominal pain, no vomiting. Genitourinary: No hematuria. Musculoskeletal: No back pain. Skin: No rashes. Neurological: No headache. Allergies: Coded Allergies: No Known Drug Allergies (Verified , 08/17/18) Home Meds Active Scripts Tramadol Hcl (TRAMADOL HCL) 50 Mg Tablet, 50-100 MG PO Q4-6H PRN for pain, #20 TAB Prov:MAGUE WESTON V DO 09/03/17 Tramadol Hcl (TRAMADOL HCL) 50 Mg Tablet, 50 MG PO Q4-6H PRN for prn, #12 TAB Prov:JANELLE HENDRICKS PA-C 08/30/17 Baclofen (BACLOFEN) 10 Mg Tablet, 10 MG PO TID PRN for prn, #30 TAB Prov:JANELLE HENDRICKS PA-C 08/30/17 Scopolamine (TRANSDERM-SCOP) 1.5 Mg Patch, 1.5 MG TD Q3D PRN for DIZZINESS, #3 PATCH Prov:DERECK CAPONE 11/16/16 Promethazine Hcl (PROMETHAZINE HCL) 25 Mg Tablet, 25 MG PO Q8H PRN for NAUSEA/VOMITING, #14 TAB Prov:JACQUELINE HERNÁNDEZ MD 07/01/16 Ropinirole Hcl (ROPINIROLE HCL) 1 Mg Tab, 2 MG PO QHS, #30 TAB Prov:LEIGHA FELIZ DO 04/24/14 Reported Medications Ascorbic Acid (VITAMIN C) 1,000 Mg Tablet, 1000 MG PO BID 07/01/16 Hydroxyzine Hcl (HYDROXYZINE HCL) 25 Mg Tablet, 25 MG PO Q4-6H PRN for ANXIETY 07/01/16 Cholecalciferol (Vitamin D3) (VITAMIN D3) 400 Unit Tablet, PO DAILY 07/01/16 Albuterol Sulfate 0.083% (ALBUTEROL SULFATE 0.083%) 2.5 Mg/3 Ml Vial.neb, 2.5 MG INH QID PRN for SHORTNESS OF BREATH, INH 07/01/16 [fortify] No Conflict Check, [id number] PO DAILY 07/01/16 Levothyroxine Sodium (LEVOTHYROXINE SODIUM) 100 Mcg Tablet, 300 MCG PO QDAY, TAB 07/01/16 Docusate Sodium (STOOL SOFTENER) 100 Mg Capsule, 200 MG PO BID, CAPSULE 03/08/16 Omeprazole (OMEPRAZOLE) 20 Mg Capsule.dr, 1 CAP PO QDAY, CAP 03/08/16 Oxygen (OXYGEN) Inha, 2.5 L INH NIGHT AND PRN, L 03/08/16 Fexofenadine Hcl (ALLERGY RELIEF) 180 Mg Tablet, 180 MG PO DAILY 01/03/16 Trazodone Hcl (TRAZODONE HCL) 50 Mg Tablet, 1 TAB PO QHS, #270 11/10/15 Duloxetine HCl (Duloxetine HCl) 60 Mg Capsule.dr, 1 TAB PO DAILY, #90 11/10/15 Multivitamin (DAILY VITAMIN) 1 Each Tablet, 1 EACH PO DAILY 09/16/14 Acetaminophen (ACETAMINOPHEN) 500 Mg Tablet, 1000 MG PO Q6H PRN for PAIN, TAB 09/16/14 Lisinopril (LISINOPRIL) 5 Mg Tablet, 5 MG PO QDAY 09/24/13 Past Medical/Surgical History PMHX/PSHX: anxiety, depression, hx of suicide attempt, 02/2016 "wore Holter" monitor, hypertension, uses oxygen 3.5L via [place] at night and prn, uses O2 90% of the time, asthma, pneumonia, COPD, 2014 colonoscopy-polyps removed, prone to constipation, GERD, uterine prolapse, traumatic injury to left knee when teenager, arthritis in back, right knee hands and wrist, fractures, "back pain", wears upper dentures, "vision problems" wears glasses, hypothyroid, 1979 thyroid removed, knee replacement 10/2014 , 1975 clogged intestines with adhesions, hx of appendectomy, 2015 cholecystectomy, 2016 hysterectomy, 1992 tubal ligation, left knee surgery x3, 04/2014 neck surgery x2, fusion, 2015 laser surgery, 2008 cataract surgery Hx Smoking: No Smoking Status: Never Smoker Exposure to Second Hand Smoke?: Yes Hx Substance Use Disorder: No Hx Alcohol Use: Yes (occasional) Constitutional Vital Sign - Last 24 Hours 08/17/18 08/17/18 08/17/18 08/17/18 15:14 15:14 15:23 15:23 Temp 97.5 Pulse 92 86 Resp 18 B/P (MAP) 143/93 143/93 (110) Pulse Ox 86 94 O2 Delivery Room Air O2 Flow Rate 2.0 08/17/18 08/17/18 08/17/18 08/17/18 15:30 15:38 15:53 15:54 Pulse 91 83 Resp 15 B/P (MAP) 126/79 (95) Pulse Ox 91 92 92 O2 Delivery Nasal Cannula O2 Flow Rate 2.0 08/17/18 08/17/18 08/17/18 08/17/18 15:54 16:01 16:08 16:18 Pulse 82 90 86 Resp 15 20 21 B/P (MAP) 123/83 (96) Pulse Ox 93 08/17/18 08/17/18 08/17/18 08/17/18 16:23 16:30 16:38 16:48 Pulse 83 88 85 Resp 12 42 14 B/P (MAP) 133/77 (95) Pulse Ox 90 91 08/17/18 08/17/18 16:48 16:55 Pulse 86 Resp 14 Pulse Ox 96 O2 Delivery Nasal Cannula O2 Flow Rate 3.0 Physical Exam General Appearance: The patient is alert, has no immediate need for airway protection and no signs of toxicity. Eyes: Pupils equal and round no pallor or injection, EOMI ENT: no pharyngeal erythema or exudates, Mucous membranes are moist, TM are nl b/l Respiratory: There are no retractions, + rhonchi and wheezing b/l Cardiovascular: Regular rate and rhythm. pulses are equal and symmetrical Gastrointestinal: Abdomen is soft and non tender, no masses, bowel sounds normal, no guarding, no rigidity or rebound Neurological: Cranial nerves II-XII grossly intact, no sensory or motor loss Skin: Warm and dry, no rashes. Musculoskeletal: Neck is supple non tender, no vertebral tenderness Extremities are nontender, nonswollen and have full range of motion. DIFFERENTIAL DIAGNOSIS: After history and physical exam differential diagnosis was considered for influenza, bronchitis, pneumonia, copd exacerbation Medical Decision Making Data Points Result Diagram: 08/17/18 1535 08/17/18 1535 Laboratory Hematology Test 08/17/18 15:35 08/17/18 15:39 Red Blood Count 4.60 M/uL (4.17-5.56) Mean Corpuscular Volume 93.7 fL (80.0-96.0) Mean Corpuscular Hemoglobin 31.5 pg (26.0-33.0) Mean Corpuscular Hemoglobin Concent 33.6 g/dL (32.0-36.0) Red Cell Distribution Width 13.2 % (11.5-14.5) Mean Platelet Volume 7.5 fL (7.2-11.1) Neutrophils (%) (Auto) 46.7 % (39.4-72.5) Lymphocytes (%) (Auto) 40.4 % (17.6-49.6) Monocytes (%) (Auto) 12.6 % (4.1-12.4) Eosinophils (%) (Auto) 0.1 % (0.4-6.7) Basophils (%) (Auto) 0.2 % (0.3-1.4) Nucleated RBC Relative Count (auto) 0.1 /100WBC Neutrophils # (Auto) 1.4 K/uL (2.0-7.4) Lymphocytes # (Auto) 1.2 K/uL (1.3-3.6) Monocytes # (Auto) 0.4 K/uL (0.3-1.0) Eosinophils # (Auto) 0.0 K/uL (0.0-0.5) Basophils # (Auto) 0.0 K/uL (0.0-0.1) Nucleated RBC Absolute Count (auto) 0.00 K/uL Sodium Level 141 mmol/L (137-145) Potassium Level 3.7 mmol/L (3.5-5.0) Chloride Level 104 mmol/L (98-107) Carbon Dioxide Level 22 mmol/L (22-31) Blood Urea Nitrogen 20 mg/dl (7-18) Creatinine 0.90 mg/dl (0.52-1.04) Glomerular Filtration Rate Calc > 60.0 Random Glucose 81 mg/dl (75-110) Calcium Level 10.0 mg/dl (8.4-10.2) Total Bilirubin 0.6 mg/dl (0.2-1.3) Aspartate Amino Transf (AST/SGOT) 33 U/L (0-35) Alanine Aminotransferase (ALT/SGPT) 30 U/L (0-56) Alkaline Phosphatase 78 U/L (0-126) Total Protein 7.2 g/dl (6.3-8.2) Albumin 4.2 g/dl (3.5-5.0) Influenza Virus Type A (PCR) Negative (NEGATIVE) Influenza Virus Type B (PCR) Negative (NEGATIVE) Chemistry Test 08/17/18 15:35 08/17/18 15:39 White Blood Count 2.9 k/uL (4.5-11.0) Red Blood Count 4.60 M/uL (4.17-5.56) Hemoglobin 14.5 g/dL (12.0-16.0) Hematocrit 43.1 % (34.0-47.0) Mean Corpuscular Volume 93.7 fL (80.0-96.0) Mean Corpuscular Hemoglobin 31.5 pg (26.0-33.0) Mean Corpuscular Hemoglobin Concent 33.6 g/dL (32.0-36.0) Red Cell Distribution Width 13.2 % (11.5-14.5) Platelet Count 187 K/uL (150-450) Mean Platelet Volume 7.5 fL (7.2-11.1) Neutrophils (%) (Auto) 46.7 % (39.4-72.5) Lymphocytes (%) (Auto) 40.4 % (17.6-49.6) Monocytes (%) (Auto) 12.6 % (4.1-12.4) Eosinophils (%) (Auto) 0.1 % (0.4-6.7) Basophils (%) (Auto) 0.2 % (0.3-1.4) Nucleated RBC Relative Count (auto) 0.1 /100WBC Neutrophils # (Auto) 1.4 K/uL (2.0-7.4) Lymphocytes # (Auto) 1.2 K/uL (1.3-3.6) Monocytes # (Auto) 0.4 K/uL (0.3-1.0) Eosinophils # (Auto) 0.0 K/uL (0.0-0.5) Basophils # (Auto) 0.0 K/uL (0.0-0.1) Nucleated RBC Absolute Count (auto) 0.00 K/uL Glomerular Filtration Rate Calc > 60.0 Calcium Level 10.0 mg/dl (8.4-10.2) Total Bilirubin 0.6 mg/dl (0.2-1.3) Aspartate Amino Transf (AST/SGOT) 33 U/L (0-35) Alanine Aminotransferase (ALT/SGPT) 30 U/L (0-56) Alkaline Phosphatase 78 U/L (0-126) Total Protein 7.2 g/dl (6.3-8.2) Albumin 4.2 g/dl (3.5-5.0) Influenza Virus Type A (PCR) Negative (NEGATIVE) Influenza Virus Type B (PCR) Negative (NEGATIVE) EKG/Imaging EKG Interpretation nsr @ 80 with no acute changes. ED Course/Re-evaluation Clinical Indication for ER IV: IV Access ED Course check labs and xray. will give breathing treatment. 08/17/2018 4:41:16 pm Pts reevaluated. She states she feels she can breath better after the treatment. Pt still with wheeze. will give pt a second treatment and add steroids. Pt would like to go home. Pt does have oxygen and nebulizer at home which she uses prn. Pt is asking for medication for the nebulizer and a cough medication that will help her sleep at night. Will reevaluate after treatment. 08/17/2018 5:16:44 pm PT states she feels better and would like to go home. Pt has nebuliser at home [facility] send her home with a treatment for tonight. Scripts will be waiting at pharmacy for her to excelsior picker in am. Decision to Disposition Date: Aug 17, 2018 Decision to Disposition Time: 17:17 Depart Departure Latest Vital Signs Vital Signs Date Time Temp Pulse Resp B/P (MAP) Pulse Ox O2 Delivery O2 Flow Rate FiO2 08/17/18 16:55 86 14 08/17/18 16:48 96 Nasal Cannula 3.0 08/17/18 16:30 133/77 (95) 08/17/18 15:14 97.5 Impression: Primary Impression: Bronchitis with airway obstruction Additional Impression: Bronchospasm with bronchitis, acute Condition: Improved Disposition: HOME OR SELF-CARE Referrals: BREONNA GAMBLE (PCP) 5 Days New Scripts Azithromycin (ZITHROMAX) 250 Mg Tablet 250 TAB PO QDAY for 5 Days, #6 TAB 2 pills (500mg) first day then 1 pill (250mg) once a day for 4 more day Prov: MAGUE WESTON DO 08/17/18 Prednisone (PREDNISONE) 20 Mg Tablet 20 MG PO BID, #10 TAB Prov: MAGUE WESTON DO 08/17/18 Albuterol Sulfate 0.083% (ALBUTEROL SULFATE 0.083%) 2.5 Mg/3 Ml Vial.neb 2.5 MG INH Q4-6H PRN for WHEEZING, #25 INH 2 Refills Prov: MAGUE WESTON DO 08/17/18 Patient Instructions: Acute Bronchitis (ED) Additional Instructions: Increase your oxygen from 2 liters up to 3 or 4 if needed for comfort. Albuterol nebulizer treatment every 4-6 hours as needed for shortness of breath, wheezing or coughing. prednisone twice a day for 5 days. Zithromax once a day for 5 days. phenergan with codeine one teaspoon every 4-6 hours as needed for cough. Follow up with your family doctor. Return if symptoms worsen prior to follow up. Problem Qualifiers MAGUE WESTON DO Aug 17, 2018 15:17
[2018-08-17] MEDS ORDERED: ALBUTEROL/IPRATROPIUM 3 ML NEB NEB ONE ×2 (15:30→16:40)
[2018-08-17 15:55] LABS: PLATELET COUNT, AUTOMATED 187 K/uL (150-450)
--- NOTE | 2018-08-17 16:30 | RADIOLOGY IMAGING REPORT ---
FACILITY: [facility] PATIENT NAME: Simona Arciniega : 1945 MR: [id number] V: [id number] EXAM DATE: ORDERING PHYSICIAN: MAGUE WESTON TECHNOLOGIST: Location: [facility] [place] Patient: Simona Arciniega : 1945 Visit/Account:[id number] Date of Sevice: 08/17/2018 CHEST PA AND LAT Additional pertinent History: Two-view examination of the chest. Comparisons made to a previous rommel dy of 05/05/2018. FINDINGS: Support lines and catheters: None Lungs and Pleura: Lung pena well expanded with no infiltrates or consolidations. No parenchymal ma ss lesions are seen. There are no effusions Heart and vasculature: Negative. Eileen and Mediastinum: Negative. Bones and Chest wall: Lower anterior cervical plate. Upper Abdomen: Negative. IMPRESSION: 1. Negative chest for acute cardiopulmonary disease. Report Dictated By: Ramon Sibley MD at 08/17/2018 4:25 PM Report E-Signed By: Ramon Sibley MD at 08/17/2018 4:26 PM [id number]
--- NOTE | 2018-08-17 16:35 | EKG ---
FACILITY: [facility] [place] PATIENT NAME: ROSALINDA WILLSON : [id number] MR: [id number] V: [id number] EXAM DATE: ORDERING PHYSICIAN: MAGUE WESTON TECHNOLOGIST: RUSTY Test Reason : SOB Blood Pressure : / mmHG Vent. Rate : 083 BPM Atrial Rate : 083 BPM P-R Int : 122 ms QRS Dur : 070 ms QT Int : 400 ms P-R-T Axes : 024 019 073 degrees QTc Int : 470 ms Normal sinus rhythm Normal ECG When compared with ECG of 18-DEC-2017 05:14, Now with normalization of R wave progression and normalization of T wave in ant/sep distribution Confirmed by GRACE MORENO ([id number]) on 08/17/2018 10:07:18 PM Referred By: ENRICO Confirmed By:GRACE MORENO
[2018-08-17] MEDS ORDERED: methylPREDNIS SUCC 125 MG/2ML IVP ONE (16:40)
[2018-08-17] MEDS ORDERED: AZITHROMYCIN 250 MG TAB PO ONE (16:40)
[2018-08-17 17:00] VITALS: BP 136/57
[2018-08-17] MEDS ORDERED: ALBUTEROL 2.5 MG/0.5ML ER ONLY NEB ONE (17:15)
[2018-08-17] MEDS ORDERED: AZIT-1 PO (17:22)
[2018-08-17] MEDS ORDERED: PRED20TA6 PO (17:22)
[2018-08-17] MEDS ORDERED: ALBU2.5V36 INH (17:22)
[2018-08-17] MEDS ORDERED: PROM5SYR PO (17:24)
[2018-08-17] MEDS ORDERED: PROMETH/COD SYRP 6.25-10MG/5ML PO ONE (17:30)
== END 2018-08-17 17:36 | disposition home or self-care (01) ==
LOC: ER 15:25
DX: J44.9 Chronic obstructive pulmonary disease, unspecified (principal); J20.9 Acute bronchitis, unspecified
CPT/HCPCS: 36415; 71046; 85025; 87040; 87502; 93005; 94640; 96374; 99284; A9270; J2930; J7620; Q0144; 82040; 82247; 82310; 82374; 82435; 82565; 82947; 84075; 84132; 84155; 84295; 84450; 84460; 84520

== ENCOUNTER 2018-12-05 08:50 | Inpatient (IN) | payer MEDICARE ==
[~2018-12-05] VITALS: Ht 144.8 cm; Wt 63.7 kg
[~2018-12-05 08:50] MED LIST changes: -AMOX-559 PO; -CELE100C79 PO; -HYDR-654 PO
[2018-12-05] MEDS ORDERED: NS(*) 0.9% 1000 ML BAG 1,000 ML IV ONE (08:57)
--- NOTE | 2018-12-05 08:57 | ER Report ---
History and Physical Time Seen By MD: 08:57 Hx. of Stated Complaint: N/V, ABDOMINAL PAIN SINCE 0400 HPI/ROS CHIEF COMPLAINT: Mid epigastric abdominal pain, constipation HISTORY OF PRESENT ILLNESS: Patient is a 72-year-old female here with complaints of midepigastric abdominal pain since 4:00 this morning, patient admits to not passing bowel movement for the past 2 days, no flatus for the past 24 hours. Patient does have a history of prior bowel obstructions, status post cholecystectomy, appendectomy, total hysterectomy. Patient reports significant midepigastric abdominal pain, nausea, vomiting. Last oral intake was last evening at approximately 10:00 or 2200. Patient did receive Zofran prior to arrival. Patient is hemodynamically stable at time of evaluation, afebrile. REVIEW OF SYSTEMS: Constitutional: No fever, no chills. Eyes: No discharge. ENT: No sore throat. Cardiovascular: No chest pain, no palpitations. Respiratory: No cough, no shortness of breath. Gastrointestinal: + mid epigastric abdominal pain, + nausea and vomiting. Genitourinary: No hematuria. Musculoskeletal: No back pain. Skin: No rashes. Neurological: No headache. Allergies: Coded Allergies: No Known Drug Allergies (Verified , 12/05/18) Home Meds Active Scripts Promethazine HCl/Codeine (Prometh-Codein 6.25-10 mg/5 ml) 5 Ml Syrup, 5 ML PO Q4-6H PRN for COUGH, #120 ML Prov:MAGUE WESTON V DO 08/17/18 Azithromycin (ZITHROMAX) 250 Mg Tablet, 250 TAB PO QDAY for 5 Days, #6 TAB 2 pills (500mg) first day then 1 pill (250mg) once a day for 4 more day Prov:MAGUE WESTON V DO 08/17/18 Prednisone (PREDNISONE) 20 Mg Tablet, 20 MG PO BID, #10 TAB Prov:MAGUE WESTON V DO 08/17/18 Albuterol Sulfate 0.083% (ALBUTEROL SULFATE 0.083%) 2.5 Mg/3 Ml Vial.neb, 2.5 MG INH Q4-6H PRN for WHEEZING, #25 INH 2 Refills Prov:MAGUE WESTON V DO 08/17/18 Tramadol Hcl (TRAMADOL HCL) 50 Mg Tablet, 50-100 MG PO Q4-6H PRN for pain, #20 TAB Prov:CHARLESJUVENTINOMAGUE Kvng MIRAMONTES 09/03/17 Tramadol Hcl (TRAMADOL HCL) 50 Mg Tablet, 50 MG PO Q4-6H PRN for prn, #12 TAB Prov:JANELLE HENDRICKS PA-C 08/30/17 Baclofen (BACLOFEN) 10 Mg Tablet, 10 MG PO TID PRN for prn, #30 TAB Prov:JANELLE HENDRICKS PA-C 08/30/17 Scopolamine (TRANSDERM-SCOP) 1.5 Mg Patch, 1.5 MG TD Q3D PRN for DIZZINESS, #3 PATCH Prov:DERECK CAPONE 11/16/16 Promethazine Hcl (PROMETHAZINE HCL) 25 Mg Tablet, 25 MG PO Q8H PRN for NAUSEA/VOMITING, #14 TAB Prov:JACQUELINE HERNÁNDEZ MD 07/01/16 Ropinirole Hcl (ROPINIROLE HCL) 1 Mg Tab, 2 MG PO QHS, #30 TAB Prov:LEIGHA FELIZ DO 04/24/14 Reported Medications Ascorbic Acid (VITAMIN C) 1,000 Mg Tablet, 1000 MG PO BID 07/01/16 Hydroxyzine Hcl (HYDROXYZINE HCL) 25 Mg Tablet, 25 MG PO Q4-6H PRN for ANXIETY 07/01/16 Cholecalciferol (Vitamin D3) (VITAMIN D3) 400 Unit Tablet, PO DAILY 07/01/16 Albuterol Sulfate 0.083% (ALBUTEROL SULFATE 0.083%) 2.5 Mg/3 Ml Vial.neb, 2.5 MG INH QID PRN for SHORTNESS OF BREATH, INH 07/01/16 [fortify] No Conflict Check, [id number] PO DAILY 07/01/16 Levothyroxine Sodium (LEVOTHYROXINE SODIUM) 100 Mcg Tablet, 300 MCG PO QDAY, TAB 07/01/16 Docusate Sodium (STOOL SOFTENER) 100 Mg Capsule, 200 MG PO BID, CAPSULE 03/08/16 Omeprazole (OMEPRAZOLE) 20 Mg Capsule.dr, 1 CAP PO QDAY, CAP 03/08/16 Oxygen (OXYGEN) Inha, 2.5 L INH NIGHT AND PRN, L 03/08/16 Fexofenadine Hcl (ALLERGY RELIEF) 180 Mg Tablet, 180 MG PO DAILY 01/03/16 Trazodone Hcl (TRAZODONE HCL) 50 Mg Tablet, 1 TAB PO QHS, #270 11/10/15 Duloxetine HCl (Duloxetine HCl) 60 Mg Capsule.dr, 1 TAB PO DAILY, #90 11/10/15 Multivitamin (DAILY VITAMIN) 1 Each Tablet, 1 EACH PO DAILY 09/16/14 Acetaminophen (ACETAMINOPHEN) 500 Mg Tablet, 1000 MG PO Q6H PRN for PAIN, TAB 09/16/14 Lisinopril (LISINOPRIL) 5 Mg Tablet, 5 MG PO QDAY 09/24/13 Hx Smoking: No Smoking Status: Never Smoker Exposure to Second Hand Smoke?: Yes Hx Substance Use Disorder: No Hx Alcohol Use: Yes (occasional) Constitutional Vital Sign - Last 24 Hours 12/05/18 08:52 Temp 97.6 Pulse 72 Resp 20 B/P (MAP) 157/82 Pulse Ox 92 O2 Delivery Nasal Cannula Physical Exam General Appearance: The patient is alert, has no immediate need for airway protection and no signs of toxicity. Moderate distress secondary pain Eyes: Pupils equal and round no pallor or injection. ENT, Mouth: Mucous membranes are moist. Respiratory: There are no retractions, lungs are clear to auscultation. Cardiovascular: Regular rate and rhythm. Gastrointestinal: + Mid epigastric abdominal pain, nausea, vomiting on examination, no rebound or guarding present at time of evaluation Neurological: No focal neurological deficits Skin: Warm and dry, no rashes. Musculoskeletal: Neck is supple non tender. Extremities are nontender, nonswollen and have full range of motion. DIFFERENTIAL DIAGNOSIS: After history and physical exam differential diagnosis was considered for abdominal pain including but not limited to appendicitis, cholecystitis, gastritis and urinary tract infection. Medical Decision Making Data Points Result Diagram: 12/05/18 0908 12/05/18 0908 Laboratory Hematology Test 12/05/18 09:08 Red Blood Count 4.84 M/uL (4.17-5.56) Mean Corpuscular Volume 96.3 fL (80.0-96.0) Mean Corpuscular Hemoglobin 32.8 pg (26.0-33.0) Mean Corpuscular Hemoglobin Concent 34.0 g/dL (32.0-36.0) Red Cell Distribution Width 13.1 % (11.5-14.5) Mean Platelet Volume 7.4 fL (7.2-11.1) Neutrophils (%) (Auto) 76.6 % (39.4-72.5) Lymphocytes (%) (Auto) 14.8 % (17.6-49.6) Monocytes (%) (Auto) 8.1 % (4.1-12.4) Eosinophils (%) (Auto) 0.3 % (0.4-6.7) Basophils (%) (Auto) 0.2 % (0.3-1.4) Nucleated RBC Relative Count (auto) 0.1 /100WBC Neutrophils # (Auto) 2.5 K/uL (2.0-7.4) Lymphocytes # (Auto) 0.5 K/uL (1.3-3.6) Monocytes # (Auto) 0.3 K/uL (0.3-1.0) Eosinophils # (Auto) 0.0 K/uL (0.0-0.5) Basophils # (Auto) 0.0 K/uL (0.0-0.1) Nucleated RBC Absolute Count (auto) 0.00 K/uL Sodium Level 142 mmol/L (137-145) Potassium Level 3.6 mmol/L (3.5-5.0) Chloride Level 100 mmol/L (98-107) Carbon Dioxide Level 35 mmol/L (22-31) Blood Urea Nitrogen 23 mg/dl (7-18) Creatinine 0.70 mg/dl (0.52-1.04) Glomerular Filtration Rate Calc > 60.0 Random Glucose 120 mg/dl (75-110) Calcium Level 10.2 mg/dl (8.4-10.2) Total Bilirubin 0.6 mg/dl (0.2-1.3) Aspartate Amino Transf (AST/SGOT) 33 U/L (0-35) Alanine Aminotransferase (ALT/SGPT) 34 U/L (0-56) Alkaline Phosphatase 99 U/L (0-126) Troponin I < 0.012 ng/ml Total Protein 7.4 g/dl (6.3-8.2) Albumin 4.5 g/dl (3.5-5.0) Lipase 69 U/L (23-300) Chemistry Test 12/05/18 09:08 White Blood Count 3.3 k/uL (4.5-11.0) Red Blood Count 4.84 M/uL (4.17-5.56) Hemoglobin 15.9 g/dL (12.0-16.0) Hematocrit 46.6 % (34.0-47.0) Mean Corpuscular Volume 96.3 fL (80.0-96.0) Mean Corpuscular Hemoglobin 32.8 pg (26.0-33.0) Mean Corpuscular Hemoglobin Concent 34.0 g/dL (32.0-36.0) Red Cell Distribution Width 13.1 % (11.5-14.5) Platelet Count 180 K/uL (150-450) Mean Platelet Volume 7.4 fL (7.2-11.1) Neutrophils (%) (Auto) 76.6 % (39.4-72.5) Lymphocytes (%) (Auto) 14.8 % (17.6-49.6) Monocytes (%) (Auto) 8.1 % (4.1-12.4) Eosinophils (%) (Auto) 0.3 % (0.4-6.7) Basophils (%) (Auto) 0.2 % (0.3-1.4) Nucleated RBC Relative Count (auto) 0.1 /100WBC Neutrophils # (Auto) 2.5 K/uL (2.0-7.4) Lymphocytes # (Auto) 0.5 K/uL (1.3-3.6) Monocytes # (Auto) 0.3 K/uL (0.3-1.0) Eosinophils # (Auto) 0.0 K/uL (0.0-0.5) Basophils # (Auto) 0.0 K/uL (0.0-0.1) Nucleated RBC Absolute Count (auto) 0.00 K/uL Glomerular Filtration Rate Calc > 60.0 Calcium Level 10.2 mg/dl (8.4-10.2) Total Bilirubin 0.6 mg/dl (0.2-1.3) Aspartate Amino Transf (AST/SGOT) 33 U/L (0-35) Alanine Aminotransferase (ALT/SGPT) 34 U/L (0-56) Alkaline Phosphatase 99 U/L (0-126) Troponin I < 0.012 ng/ml Total Protein 7.4 g/dl (6.3-8.2) Albumin 4.5 g/dl (3.5-5.0) Lipase 69 U/L (23-300) ED Course/Re-evaluation ED Course Patient is a 72-year-old female here with complaints of midepigastric abdominal pain, nausea, vomiting since 4:00 this morning, no bowel movement for the past 2 days, no flatus for the past 24 hours. Patient admits to prior history of bowel obstructions status post cholecystectomy, appendectomy, total hysterectomy. Last oral intake was approximately 2200 last night. Patient's labs are unremarkable, troponin was negative. Patient was given Zofran, Reglan, fluid bolus, GI cocktail, fentanyl, ketamine with significant relief of symptoms. CT imaging of the abdomen and pelvis identified a small bowel obstruction in the distal aspect. I discussed the patient with Dr. Murphy who accepted the patient to surgery service. NG tube was placed, patient was hemodynamically stable at time of admission. Decision to Disposition Date: Dec 05, 2018 Decision to Disposition Time: 11:23 Depart Departure Latest Vital Signs Vital Signs Date Time Temp Pulse Resp B/P (MAP) Pulse Ox O2 Delivery O2 Flow Rate FiO2 12/05/18 08:52 97.6 72 20 157/82 92 Nasal Cannula Impression: Primary Impression: Small bowel obstruction Condition: Condition Unchanged Disposition: Admitted from ER Referrals: BREONNA GAMBLE (PCP) CAROL HEREDIA DO Dec 05, 2018 08:57
[2018-12-05] MEDS ORDERED: fentaNYL CITR 100 MCG/2 ML AMP IVP ONE (09:00)
[2018-12-05] MEDS ORDERED: METOCLOPRAMIDE 10 MG/2 ML SDV IVP ONE (09:00)
[2018-12-05] MEDS ORDERED: LIDOCAINE 2% VISC SLN 15ML UDC PO ONE (09:00)
[2018-12-05] MEDS ORDERED: MAG HYD/AL HYD/SIMETH 30ML UDC PO ONE (09:00)
[2018-12-05 09:34] LABS: PLATELET COUNT, AUTOMATED 180 K/uL (150-450)
[2018-12-05] MEDS ORDERED: IOPAMIDOL 76% 150 ML INFUS BTL 150 ML ONE (10:00)
[2018-12-05] MEDS ORDERED: KETAMINE HCL-NS 50 MG/5 ML SYR IVP ONE (10:45)
[2018-12-05] MEDS ORDERED: ONDANSETRON 4 MG/2 ML VIAL IVP ONE (10:45)
--- NOTE | 2018-12-05 10:45 | RADIOLOGY IMAGING REPORT ---
FACILITY: [facility] PATIENT NAME: Simona Arciniega : 1945 MR: [id number] V: [id number] EXAM DATE: ORDERING PHYSICIAN: CAROL HEREDIA TECHNOLOGIST: Location: [facility] [place] Patient: Simona Arciniega : 1945 Visit/Account:[id number] Date of Sevice: 12/05/2018 CT ABDOMEN PELVIS W/ CON HISTORY: mid epigastric abd pain, bowel obstruction? TECHNIQUE: Following administration of IV contrast contiguous axial images acquired through the abdom en/pelvis. Coronal and sagittal reformatting also performed. One of the following dose optimization techniques was utilized in the performance of this exam: Automated exposure control; adjustment of t he mA and/or kV according to the patient's size; or use of an iterative reconstruction technique. S pecific details can be referenced in the facility's radiology CT exam operational policy. CONTRAST: 75 mL [id number] COMPARISON: CT chest abdomen pelvis 12/18/2017 FINDINGS: Visualized lung bases: Negative. Hepatobiliary: Normal liver. Remote cholecystectomy. Spleen: Negative. Adrenals: Negative. Pancreas: Moderate pancreatic atrophy. Kidneys ureters or bladder: Negative. Genitalia: Remote hysterectomy. GI: Evidence of previous distal small bowel surgery with anastomotic suture line seen in the right l ower quadrant (axial images 114 series 2) unchanged . There has been interval development of marked d istention of the small bowel measuring up to 4 cm diameter with multiple air-fluid levels. There is a enteric fecal material seen in the distal ileum which can be seen just proximal to an obstruction an d a transition zone is noted just proximal to the previous surgical site which is best appreciated co ruth images 28-29. There is no evidence of obstructive mass and this is almost certainly related to a postsurgical adhesion. The colon is decompressed and unremarkable. Vessels/spaces/nodes: Negative. Bones/soft tissues: There is partial collapse of the superior endplate of the L4 vertebral body unch anged from the previous exam. Osseous structures otherwise unremarkable. Additional findings: None pertinent. IMPRESSION: Distal small bowel obstruction just proximal to a previous ileal surgical site and probably related t o an adhesion rather than a mass. Additional stable benign findings per above . Report Dictated By: Justin Gannon MD at 12/05/2018 10:29 AM Report E-Signed By: Justin Gannon MD at 12/05/2018 10:40 AM WSN:[id number]
[2018-12-05 12:02] VITALS: BP 167/88
--- NOTE | 2018-12-05 12:03 | RADIOLOGY IMAGING REPORT ---
FACILITY: [facility] PATIENT NAME: Simona Arciniega : 1945 MR: [id number] V: [id number] EXAM DATE: ORDERING PHYSICIAN: CAROL HEREDIA TECHNOLOGIST: Location: [facility] - [place] Patient: Simona Arciniega : 1945 Visit/Account:[id number] Date of Sevice: 12/05/2018 KUB SINGLE VIEW ABDOMEN COMPARISON: None. HISTORY: NG tube placement FINDINGS: BOWEL GAS PATTERN: Normal although note is made that there is a paucity of small bowel gas limiting assessment by plain films. Average stool in the right colon. There is a feeding tube present with i ts tip in the mid gastric body. No abnormal dilation or deviation. SOFT TISSUES: No masses or organomegaly. CALCIFICATIONS: None significant. No radiopaque urinary tract calculi. BONES: Degenerative changes in the lumbar spine.No fractures or suspicious osseous lesions. OTHER: Cholecystectomy clips in the right upper quadrant. Excreted contrast in the nondilated with the opacified renal collecting systems and incompletely imaged bladder, due to contrast administratio n on recent CT. No abnormal gaseous collections. IMPRESSION: Feeding tube tip in the mid gastric body. Report Dictated By: Bret Freitas at 12/05/2018 11:55 AM Report E-Signed By: Bret Freitas at 12/05/2018 11:57 AM WSN:[id number]
[2018-12-05] MEDS ORDERED: NS(*) 0.9% 1000 ML BAG 1,000 ML IV PRN ×2 (15:05→19:15)
[2018-12-05 15:26] VITALS: BP 135/61
[2018-12-05 18:43] VITALS: BP 132/72
[2018-12-05] MEDS ORDERED: ONDANSETRON 4 MG/2 ML VIAL IVP PRN (19:15)
[2018-12-05] MEDS ORDERED: PROMETHAZINE 25 MG/ML 1 ML AMP IVP PRN (19:15)
[2018-12-05] MEDS: LISINOPRIL 5 MG TAB PO SCH (21:00)
--- NOTE | 2018-12-05 22:15 | Gen Surgery History & Physical ---
History of Present Illness Chief Complaint abd pain History of Present Illness delayed note (i saw pt this afternoon) 72 yo f with abd pain off and on for awhile. diffuse abd pain severe this am. vomiting (pt made herself vomit). last bm was a few days ago. has passes flatus recently after taking laxatives. had hysterectomy and cholecystectomy. History Home Meds Active Scripts Tramadol Hcl (TRAMADOL HCL) 50 Mg Tablet, 50-100 MG PO Q4-6H PRN for pain, #20 TAB Prov:MAGUE WESTON V DO 09/03/17 Ropinirole Hcl (ROPINIROLE HCL) 1 Mg Tab, 2 MG PO QHS, #30 TAB Prov:LEIGHA FELIZ DO 04/24/14 Reported Medications Ascorbic Acid (VITAMIN C) 1,000 Mg Tablet, 1000 MG PO BID 07/01/16 Hydroxyzine Hcl (HYDROXYZINE HCL) 25 Mg Tablet, 25 MG PO Q4-6H PRN for ANXIETY 07/01/16 Cholecalciferol (Vitamin D3) (VITAMIN D3) 400 Unit Tablet, PO DAILY 07/01/16 [fortify] No Conflict Check, [id number] PO DAILY 07/01/16 Levothyroxine Sodium (LEVOTHYROXINE SODIUM) 100 Mcg Tablet, 300 MCG PO QDAY, TAB 07/01/16 Docusate Sodium (STOOL SOFTENER) 100 Mg Capsule, 200 MG PO BID, CAPSULE 03/08/16 Omeprazole (OMEPRAZOLE) 20 Mg Capsule.dr, 1 CAP PO QDAY, CAP 03/08/16 Oxygen (OXYGEN) Inha, 2.5 L INH NIGHT AND PRN, L 03/08/16 Fexofenadine Hcl (ALLERGY RELIEF) 180 Mg Tablet, 180 MG PO DAILY 01/03/16 Trazodone Hcl (TRAZODONE HCL) 50 Mg Tablet, 1 TAB PO QHS, #270 11/10/15 Duloxetine HCl (Duloxetine HCl) 60 Mg Capsule.dr, 1 TAB PO DAILY, #90 11/10/15 Multivitamin (DAILY VITAMIN) 1 Each Tablet, 1 EACH PO DAILY 09/16/14 Acetaminophen (ACETAMINOPHEN) 500 Mg Tablet, 1000 MG PO Q6H PRN for PAIN, TAB 09/16/14 Lisinopril (LISINOPRIL) 5 Mg Tablet, 5 MG PO HS 09/24/13 Discontinued Reported Medications Albuterol Sulfate 0.083% (ALBUTEROL SULFATE 0.083%) 2.5 Mg/3 Ml Vial.neb, 2.5 MG INH QID PRN for SHORTNESS OF BREATH, INH 07/01/16 Discontinued Scripts Promethazine HCl/Codeine (Prometh-Codein 6.25-10 mg/5 ml) 5 Ml Syrup, 5 ML PO Q4-6H PRN for COUGH, #120 ML Prov:MAGUE WESTON V DO 08/17/18 Azithromycin (ZITHROMAX) 250 Mg Tablet, 250 TAB PO QDAY for 5 Days, #6 TAB 2 pills (500mg) first day then 1 pill (250mg) once a day for 4 more day Prov:MAGUE WESTON V DO 08/17/18 Prednisone (PREDNISONE) 20 Mg Tablet, 20 MG PO BID, #10 TAB Prov:MAGUE WESTON V DO 08/17/18 Albuterol Sulfate 0.083% (ALBUTEROL SULFATE 0.083%) 2.5 Mg/3 Ml Vial.neb, 2.5 MG INH Q4-6H PRN for WHEEZING, #25 INH 2 Refills Prov:MAGUE WESTON V 08/17/18 Tramadol Hcl (TRAMADOL HCL) 50 Mg Tablet, 50 MG PO Q4-6H PRN for prn, #12 TAB Prov:JANELLE HENDRICKS PA-C 08/30/17 Baclofen (BACLOFEN) 10 Mg Tablet, 10 MG PO TID PRN for prn, #30 TAB Prov:JANELLE HENDRICKS PA-C 08/30/17 Scopolamine (TRANSDERM-SCOP) 1.5 Mg Patch, 1.5 MG TD Q3D PRN for DIZZINESS, #3 PATCH Prov:DERECK CAPONE 11/16/16 Promethazine Hcl (PROMETHAZINE HCL) 25 Mg Tablet, 25 MG PO Q8H PRN for NAUSEA/VOMITING, #14 TAB Prov:JACQUELINE HERNÁNDEZ MD 07/01/16 Allergies: Coded Allergies: No Known Drug Allergies (Verified , 12/05/18) Patient History: FH: brain cancer BROTHER OR SISTER BROTHER OR SISTER FH: breast cancer BROTHER OR SISTER FH: colon cancer MOTHER FH: diabetes mellitus BROTHER OR SISTER, FH: heart disease BROTHER OR SISTER FH: skin cancer BROTHER OR SISTER FH: stroke BROTHER OR SISTER Review of Systems Constitutional: Other (10 pt ros neg except per hpi) Exam General Appearance: Alert, Awake, No Acute Distress Neuro: No Gross deficits Eyes: Other (per, eomi) ENT: Moist Mucous Membranes Neck: No Masses Cardiovascular: Other (reg rate) Respiratory: No Respiratory Distress GI: Other (abd soft, mildly ttp and distended) Extremities: Other (no pitting edema) Integumentary: Skin Intact without Lesion / Mass Psych: Alert & Oriented X3, Appropriate Mood & Affect Medical Decision Making Data Points Result Diagram: 12/05/18 0908 12/05/18 0908 Assessment and Plan Problems: (1) Small bowel obstruction *Optional Permanent Comment*: partial, distal Last Edited By: Isidro Velasquez on Mar 12, 2016 10:06 Status: Acute Assessment & Plan: 12/05/18: npo, ngt, serial exams. gastrograffin if no resolution. surgery if needed. Venous Thromboembolism Antithrombotics Is Pt On Any Antithrombotics?: No JENNIFER CASTILLO Dec 05, 2018 22:15
[2018-12-05] MEDS: KETOROLAC 15 MG/ML VIAL IVP PRN (22:53)
[2018-12-05 23:07] VITALS: BP 124/78
[2018-12-06] MEDS: HYDROmorphone HCL 2 MG/ML SDV IVP PRN ×3 (00:31→14:16)
[2018-12-06 02:54] VITALS: BP 131/87
[2018-12-06] MEDS: LEVOTHYROXINE SOD 0.150 MG TAB PO SCH (05:17)
--- NOTE | 2018-12-06 06:09 | RADIOLOGY IMAGING REPORT ---
FACILITY: [facility] PATIENT NAME: Simona Arciniega : 1945 MR: [id number] V: [id number] EXAM DATE: ORDERING PHYSICIAN: JENNIFER CASTILLO TECHNOLOGIST: Location: [facility] - [place] Patient: Simona Arciniega : 1945 Visit/Account:[id number] Date of Sevice: 12/06/2018 Portable abdomen: Indication: Possible obstruction. Technique: Supine views of the abdomen were obtained. Comparison: 12/05/2018 Findings: The NG tube remains in satisfactory position. The gas pattern is nonspecific. There are no definite signs of obstruction. The skeletal and soft tissue structures appear unchanged. IMPRESSION: No evidence of obstruction. Report Dictated By: Og Poe MD at 12/06/2018 6:04 AM Report E-Signed By: Og Poe MD at 12/06/2018 6:06 AM WSN:[id number]
[2018-12-06 06:55] VITALS: BP 148/75
[2018-12-06] MEDS: PANTOPRAZOLE SOD 40 MG TABEC PO SCH (08:33)
[2018-12-06] MEDS: DULoxetine HCL 30 MG CAPCR PO SCH (08:33)
[2018-12-06 10:18] VITALS: Ht 144.8 cm; Wt 63.7 kg
--- NOTE | 2018-12-06 11:47 | General Surgery Progress Note ---
Subjective Progress Notes Subjective +bms. no acute events. Physical Exam Vital Signs Date Time Temp Pulse Resp B/P (MAP) Pulse Ox O2 Delivery O2 Flow Rate FiO2 12/06/18 06:55 97.6 72 16 148/75 (99) 97 Nasal Cannula 2.5 Intake and Output 12/06/18 07:00 Intake Total 1100 ml Output Total 335 ml Balance 765 ml Intake Oral 100 ml IV Total 1000 ml Output Gastric Drainage Total 335 ml # Voids 5 # Bowel Movements 2 General Appearance: No Acute Distress Cardiovascular: Other (reg rate) GI: Other (soft, less distended) Result Diagram: 12/05/1890712/05/18907 Assessment and Plan Problems: (1) Small bowel obstruction *Optional Permanent Comment*: partial, distal Last Edited By: Isidro Velasquez on Mar 12, 2016 10:06 Status: Acute Assessment & Plan: 12/05/18: npo, ngt, serial exams. gastrograffin if no resolution. surgery if needed. 12/06/18: sbo improving. clamp ng tube. clears. ambulate. Exam Sepsis Risk: No Definite Risk JENNIFER CASTILLO Dec 06, 2018 11:47
[2018-12-06 12:10] VITALS: BP 140/72
[2018-12-06] MEDS ORDERED: traZODone HCL 50 MG TAB PO PRN (15:55)
[2018-12-06] MEDS ORDERED: GABA-549 PO (16:25)
[2018-12-06] MEDS ORDERED: CELE100C79 PO (16:25)
[2018-12-06] MEDS: APAP/HYDROCODONE 325/5 TAB PO PRN (18:28)
[2018-12-06 18:31] VITALS: BP 107/66
[2018-12-06 20:04] VITALS: BP 124/76
[2018-12-06] MEDS: LISINOPRIL 5 MG TAB PO SCH (21:24)
[2018-12-06 23:28] VITALS: BP 131/78
[2018-12-07] MEDS: KETOROLAC 15 MG/ML VIAL IVP PRN (01:13)
[2018-12-07 03:15] VITALS: BP 116/71
[2018-12-07] MEDS: LEVOTHYROXINE SOD 0.150 MG TAB PO SCH (05:35)
[2018-12-07 06:55] VITALS: BP 124/59
[2018-12-07] MEDS: APAP/HYDROCODONE 325/5 TAB PO PRN (09:04)
[2018-12-07] MEDS: DULoxetine HCL 30 MG CAPCR PO SCH (09:05)
[2018-12-07] MEDS: PANTOPRAZOLE SOD 40 MG TABEC PO SCH (09:05)
--- NOTE | 2018-12-07 09:37 | General Surgery Progress Note ---
Subjective Progress Notes Subjective c/o back pain. abd pain resolved. recent bm, flatus. Physical Exam Vital Signs Date Time Temp Pulse Resp B/P (MAP) Pulse Ox O2 Delivery O2 Flow Rate FiO2 12/07/18 06:55 98.7 82 16 124/59 (80) 90 Nasal Cannula 3.0 Intake and Output 12/07/18 07:00 Intake Total 500 ml Output Total 300 ml Balance 200 ml Intake Oral 500 ml Output Gastric Drainage Total 300 ml # Voids 3 Cardiovascular: Other (reg rate) GI: Soft and Non-Tender Result Diagram: 12/05/18 0908 12/05/18907 Assessment and Plan Problems: (1) Small bowel obstruction *Optional Permanent Comment*: partial, distal Last Edited By: Isidro Velasquez on Mar 12, 2016 10:06 Status: Acute Assessment & Plan: 12/05/18: npo, ngt, serial exams. gastrograffin if no resolution. surgery if needed. 12/06/18: sbo improving. clamp ng tube. clears. ambulate. 12/07/18: sbo resolved. diet as raciel. treat back pain. home soon. Exam Sepsis Risk: No Definite Risk JENNIFER CASTILLO Dec 07, 2018 09:37
[2018-12-07] MEDS ORDERED: APAP/HYDROCODONE 325/7.5 TAB PO PRN (09:40)
[2018-12-07] MEDS ORDERED: DOCUSATE SODIUM 100 MG CAP PO SCH (10:00)
[2018-12-07] MEDS ORDERED: GABAPENTIN 300 MG CAP PO SCH (10:00)
--- NOTE | 2018-12-07 10:32 | Medical Nutrition Therapy ---
Nutrition Anthropometrics Height (Inches): 57.00 Height (Calculated Centimeters: 144.916197 Weight (Pounds): 140 Weight (Calculated Kilograms): 63.701 Emanuel Nutrition Score: Adequate Emanuel Nutrition Risk Score: 19 Dietary Referral Nutrition Risk Factors: Nutrition Risk Comment: PT GAINED 50 SINCE OF IN OCTOBER Physical Findings Physical Appearance: Obese BMI 30-39 Skin Appearance Skin Appearance: Edema Edema Location Modifier: Edema Location: Type of Edema: Degree of Edema: Gastrointestinal Symptoms GI Symtoms: Nausea Tube Present: NG Bowel Sounds: Recent Bowel Pattern: Stool Characteristics: Nutritional Diagnosis Nutritional Risk Acuity 1: GI Obstruction Nutritional Risk Acuity 3: Nausea Past Medical History: recent hx C diff pos surgery, GERD, hypothyroid, hypertension, depression, restless legs syndrome, obstructive sleep apnea, history of back pain and neck pain, COPD. Nutritional Acuity: 1-High Nutrition Diagnosis: Over-weight/Obesity Nutrition Etiology: Psychological Issues Nutrition Problem/Etiology/Sym: Overweight/obesity related to psychological issues as evidenced by 50# wt gain since Oct. after 's Energy Requirement: 1342 (m st jeor X 1.1 X 1.2) Adjusted Energy Requirement Re: 975 (using IBW of 85# Pt is 4 ft 9in) Protein Requirement: 50 (0.8 g protein/kg) Fluid Requirement: 1575 (25mL/kg) Diet Type: Clear Liquids, Medical Liquid/GI soft Nutrition Intervention: Incr diet as tolerated Nutrition Monitoring & Eval Nutrition Goals: Eat 50-100% Meal, Drink > 1200 cc/day Nutrition Follow-Up: Good Intake Nutrition Monitoring: Pt consumed 100% of mechanial liquid/GI soft diet RD Patient Assessment Time: [address] Assessment Type: RD Assessment Patient Nutrition Acuity: 1-High Follow Up Date: Dec 09, 2018 Nutritional Comment: Pt admitted with abdominal pain. Pt did self-induce vomiting. Dx with SBO. Pt on NPO/Ice Chips only. BUN is elevated at 23, as is random glucose at 120. WBC of 3.3 are decrease. Monitor for progression of diet.-AKG 12/07 Pt upgraded to CL and mechanical liquid/GI soft diet, and consumed 100% of meals offered. MD note states no acute events and +BMS. No new labs, and no medications of concern. Pt has gained 50# since Oct (2 months), since 's . Pt BMI of 30 is in the obese range. Monitor for improvement in condition and adequate intake. -ILANA CULLEN Dec 07, 2018 10:32
[2018-12-07 11:43] VITALS: BP 111/57
[2018-12-07] MEDS ORDERED: HYDR-654 PO (12:38)
--- NOTE | 2018-12-07 12:59 | Hospitalist Depart ---
Discharge Summary Reason for Hosp/Final Diag: (1) Small bowel obstruction *Optional Permanent Comment*: partial, distal Last Edited By: Isidro Velasquez on Mar 12, 2016 10:06 Status: Acute Hospital Course & Plan: 12/05/18: npo, ngt, serial exams. gastrograffin if no resolution. surgery if needed. 12/06/18: sbo improving. clamp ng tube. clears. ambulate. 12/07/18: sbo resolved. diet as raciel. treat back pain. home soon. back and leg pain improved. feels fine to go home. Departure Weight (Pounds): 140 Weight (Ounces): 7.0 Result Diagram: 12/05/1890712/05/18907 Condition: Improved Discharge Instructions Home Meds Active Scripts Hydrocodone Bit/Acetaminophen (NORCO 7.5-325 TABLET) 1 Each Tablet, 1 EACH PO Q8H PRN for PAIN, #20 TAB Prov:JENNIFER CASTILLO 12/07/18 Tramadol Hcl (TRAMADOL HCL) 50 Mg Tablet, 50-100 MG PO Q4-6H PRN for pain, #20 TAB Prov:MAGUE WESTON DO 09/03/17 Ropinirole Hcl (ROPINIROLE HCL) 1 Mg Tab, 2 MG PO QHS, #30 TAB Prov:LEIGHA FELIZ DO 04/24/14 Reported Medications Celecoxib (CELEBREX) 100 Mg Capsule, 100 MG PO BID PRN for PAIN, CAPSULE 12/06/18 Gabapentin (GABAPENTIN) 300 Mg Capsule, 300 MG PO HS for PAIN, CAPSULE TAKE ONE CAPSULE BY MOUTH EVERY NIGHT AT BEDTIME FOR NERVE PAIN 12/06/18 Ascorbic Acid (VITAMIN C) 1,000 Mg Tablet, 1000 MG PO BID 07/01/16 Hydroxyzine Hcl (HYDROXYZINE HCL) 25 Mg Tablet, 25 MG PO Q4-6H PRN for ANXIETY 07/01/16 Cholecalciferol (Vitamin D3) (VITAMIN D3) 400 Unit Tablet, PO DAILY 07/01/16 [fortify] No Conflict Check, [id number] PO DAILY 07/01/16 Levothyroxine Sodium (LEVOTHYROXINE SODIUM) 100 Mcg Tablet, 200 MCG PO QDAY, TAB 07/01/16 Docusate Sodium (STOOL SOFTENER) 100 Mg Capsule, 200 MG PO BID, CAPSULE 03/08/16 Omeprazole (OMEPRAZOLE) 20 Mg Capsule.dr, 1 CAP PO QDAY, CAP 03/08/16 Oxygen (OXYGEN) Inha, 2.5 L INH NIGHT AND PRN, L 03/08/16 Trazodone Hcl (TRAZODONE HCL) 50 Mg Tablet, 1 TAB PO QHS, #270 11/10/15 Duloxetine HCl (Duloxetine HCl) 60 Mg Capsule.dr, 1 TAB PO DAILY, #90 11/10/15 Multivitamin (DAILY VITAMIN) 1 Each Tablet, 1 EACH PO DAILY 09/16/14 Acetaminophen (ACETAMINOPHEN) 500 Mg Tablet, 1000 MG PO Q6H PRN for PAIN, TAB 09/16/14 Lisinopril (LISINOPRIL) 5 Mg Tablet, 5 MG PO HS 09/24/13 Discontinued Reported Medications Fexofenadine Hcl (ALLERGY RELIEF) 180 Mg Tablet, 180 MG PO DAILY 01/03/16 Albuterol Sulfate 0.083% (ALBUTEROL SULFATE 0.083%) 2.5 Mg/3 Ml Vial.neb, 2.5 MG INH QID PRN for SHORTNESS OF BREATH, INH 07/01/16 Discontinued Scripts Promethazine HCl/Codeine (Prometh-Codein 6.25-10 mg/5 ml) 5 Ml Syrup, 5 ML PO Q4-6H PRN for COUGH, #120 ML Prov:MAGUE WESTON V DO 08/17/18 Azithromycin (ZITHROMAX) 250 Mg Tablet, 250 TAB PO QDAY for 5 Days, #6 TAB 2 pills (500mg) first day then 1 pill (250mg) once a day for 4 more day Prov:MAGUE WESTON V DO 08/17/18 Prednisone (PREDNISONE) 20 Mg Tablet, 20 MG PO BID, #10 TAB Prov:CHARLESORAAVELINOMAGUE V DO 08/17/18 Albuterol Sulfate 0.083% (ALBUTEROL SULFATE 0.083%) 2.5 Mg/3 Ml Vial.neb, 2.5 MG INH Q4-6H PRN for WHEEZING, #25 INH 2 Refills Prov:MAGUE WESTON V DO 08/17/18 Tramadol Hcl (TRAMADOL HCL) 50 Mg Tablet, 50 MG PO Q4-6H PRN for prn, #12 TAB Prov:JANELLE HENDRICKS PA-C 08/30/17 Baclofen (BACLOFEN) 10 Mg Tablet, 10 MG PO TID PRN for prn, #30 TAB Prov:JANELLE HENDRICKS PA-C 08/30/17 Scopolamine (TRANSDERM-SCOP) 1.5 Mg Patch, 1.5 MG TD Q3D PRN for DIZZINESS, #3 PATCH Prov:DERECK CAPONE 11/16/16 Promethazine Hcl (PROMETHAZINE HCL) 25 Mg Tablet, 25 MG PO Q8H PRN for NAUSEA/VOMITING, #14 TAB Prov:JACQUELINE HERNÁNDEZ MD 07/01/16 Diet: Regular Activity: As Tolerated Special Instructions: f/u dr. david castillo prn ([phone]). f/u chiropractor. take stool softener while taking pain meds. Venous Thromboembolism Antithrombotics Is Pt On Any Antithrombotics?: No JENNIFER CASTILLO Dec 07, 2018 12:59
== END 2018-12-07 15:10 | disposition home or self-care (01) | DRG 390 ==
LOC: ER 09:03 → MED 11:27
PROVIDERS: ADMIT Surgery; ATTEND Surgery
DX: K56.600 Partial intestinal obstruction, unspecified as to cause (principal); Z90.49 Acquired absence of other specified parts of digestive tract; Z90.710 Acquired absence of both cervix and uterus; Z96.652 Presence of left artificial knee joint
CPT/HCPCS: 74018; 74177; 82040; 82247; 82310; 82374; 82435; 82565; 82947; 83690; 84075; 84132; 84155; 84295; 84450; 84460; 84484; 84520; 85025; 96361; 96374; 96375; 99285; J1170; J1885; J2405; J2765; J3010; J3490; J7030; Q9967

== ENCOUNTER → 2018-12-05 | Outpatient (CLI) | payer MEDICARE ==
[~2018-12-05] MED LIST changes: +AMOX-559 PO; +AZIT-1 PO; +CELE100C79 PO; +HYDR-654 PO; +METR500T15 PO; -METR500T54 PO; +PROM5SYR PO
[2018-12-06 10:18] VITALS: BMI 30.3
== END ==
LOC: AMB 08:19
PROVIDERS: ATTEND Nurse Practitioner
DX: R10.84 Generalized abdominal pain (principal); K59.00 Constipation, unspecified; R11.2 Nausea with vomiting, unspecified
CPT/HCPCS: A0425; A0427

== ENCOUNTER 2018-12-09 14:44 | Emergency (ER) | payer MEDICARE ==
[2018-12-06 10:18] VITALS: BMI 30.3
[~2018-12-09 14:44] MED LIST changes: +CELE100C79 PO; +HYDR-654 PO
--- NOTE | 2018-12-09 14:48 | ER Report ---
History and Physical Time Seen By MD: 14:47 HPI/ROS CHIEF COMPLAINT: Lower back and abdominal pain HISTORY OF PRESENT ILLNESS: Patient is a 72-year-old female here with complaints of lower back pain which she attributes to arthritis, recent history of small bowel obstructions status post surgery. Patient was evaluated by Dr. Murphy 2 days ago and was prescribed hydrocodone for pain relief. Patient denies relief of symptoms since starting to take these medications. Patient has afebrile, hemodynamically stable. She does have periumbilical abdominal pain likely postoperative in nature. Patient denies recent trauma, bowel or bladder incont inence, fevers. REVIEW OF SYSTEMS: Constitutional: No fever, no chills. Eyes: No discharge. ENT: No sore throat. Cardiovascular: No chest pain, no palpitations. Respiratory: No cough, no shortness of breath. Gastrointestinal: No abdominal pain, no vomiting. Genitourinary: No hematuria. Musculoskeletal: + lower midline back pain, lumbar tenderness Skin: No rashes. Neurological: No headache. Allergies: Coded Allergies: No Known Drug Allergies (Verified , 12/05/18) Home Meds Active Scripts Hydrocodone Bit/Acetaminophen (NORCO 7.5-325 TABLET) 1 Each Tablet, 1 EACH PO Q8H PRN for PAIN, #20 TAB Prov:JENNIFER MURPHY 12/07/18 Tramadol Hcl (TRAMADOL HCL) 50 Mg Tablet, 50-100 MG PO Q4-6H PRN for pain, #20 TAB Prov:MAGUE WESTON V DO 09/03/17 Ropinirole Hcl (ROPINIROLE HCL) 1 Mg Tab, 2 MG PO QHS, #30 TAB Prov:LEIGHA FELZI DO 04/24/14 Reported Medications Celecoxib (CELEBREX) 100 Mg Capsule, 100 MG PO BID PRN for PAIN, CAPSULE 12/06/18 Gabapentin (GABAPENTIN) 300 Mg Capsule, 300 MG PO HS for PAIN, CAPSULE TAKE ONE CAPSULE BY MOUTH EVERY NIGHT AT BEDTIME FOR NERVE PAIN 12/06/18 Ascorbic Acid (VITAMIN C) 1,000 Mg Tablet, 1000 MG PO BID 07/01/16 Hydroxyzine Hcl (HYDROXYZINE HCL) 25 Mg Tablet, 25 MG PO Q4-6H PRN for ANXIETY 07/01/16 Cholecalciferol (Vitamin D3) (VITAMIN D3) 400 Unit Tablet, PO DAILY 07/01/16 [fortify] No Conflict Check, [id number] PO DAILY 07/01/16 Levothyroxine Sodium (LEVOTHYROXINE SODIUM) 100 Mcg Tablet, 200 MCG PO QDAY, TAB 07/01/16 Docusate Sodium (STOOL SOFTENER) 100 Mg Capsule, 200 MG PO BID, CAPSULE 03/08/16 Omeprazole (OMEPRAZOLE) 20 Mg Capsule.dr, 1 CAP PO QDAY, CAP 03/08/16 Oxygen (OXYGEN) Inha, 2.5 L INH NIGHT AND PRN, L 03/08/16 Trazodone Hcl (TRAZODONE HCL) 50 Mg Tablet, 1 TAB PO QHS, #270 11/10/15 Duloxetine HCl (Duloxetine HCl) 60 Mg Capsule.dr, 1 TAB PO DAILY, #90 11/10/15 Multivitamin (DAILY VITAMIN) 1 Each Tablet, 1 EACH PO DAILY 09/16/14 Acetaminophen (ACETAMINOPHEN) 500 Mg Tablet, 1000 MG PO Q6H PRN for PAIN, TAB 09/16/14 Lisinopril (LISINOPRIL) 5 Mg Tablet, 5 MG PO HS 09/24/13 Discontinued Reported Medications Fexofenadine Hcl (ALLERGY RELIEF) 180 Mg Tablet, 180 MG PO DAILY 01/03/16 Albuterol Sulfate 0.083% (ALBUTEROL SULFATE 0.083%) 2.5 Mg/3 Ml Vial.neb, 2.5 MG INH QID PRN for SHORTNESS OF BREATH, INH 07/01/16 Discontinued Scripts Promethazine HCl/Codeine (Prometh-Codein 6.25-10 mg/5 ml) 5 Ml Syrup, 5 ML PO Q4-6H PRN for COUGH, #120 ML Prov:MAGUE WESTON V DO 08/17/18 Azithromycin (ZITHROMAX) 250 Mg Tablet, 250 TAB PO QDAY for 5 Days, #6 TAB 2 pills (500mg) first day then 1 pill (250mg) once a day for 4 more day Prov:MAGUE WESTON V DO 08/17/18 Prednisone (PREDNISONE) 20 Mg Tablet, 20 MG PO BID, #10 TAB Prov:CHARLESORAAVELINOMAGUE V DO 08/17/18 Albuterol Sulfate 0.083% (ALBUTEROL SULFATE 0.083%) 2.5 Mg/3 Ml Vial.neb, 2.5 MG INH Q4-6H PRN for WHEEZING, #25 INH 2 Refills Prov:MAGUE WESTON V 08/17/18 Tramadol Hcl (TRAMADOL HCL) 50 Mg Tablet, 50 MG PO Q4-6H PRN for prn, #12 TAB Prov:JANELLE HENDRICKS PA-C 08/30/17 Baclofen (BACLOFEN) 10 Mg Tablet, 10 MG PO TID PRN for prn, #30 TAB Prov:JANELLE HENDRICKS PA-C 08/30/17 Scopolamine (TRANSDERM-SCOP) 1.5 Mg Patch, 1.5 MG TD Q3D PRN for DIZZINESS, #3 PATCH Prov:DERECK CAPONE COUNT TEAM MEMBER 11/16/16 Promethazine Hcl (PROMETHAZINE HCL) 25 Mg Tablet, 25 MG PO Q8H PRN for NAUSEA/VOMITING, #14 TAB Prov:JACQUELINE HERNÁNDEZ MD 07/01/16 Hx Smoking: No Smoking Status: Never Smoker Exposure to Second Hand Smoke?: Yes Hx Substance Use Disorder: No Hx Alcohol Use: Yes (occasional) Constitutional Vital Sign - Last 24 Hours 12/09/18 14:51 Temp 98.4 Pulse 80 Resp 20 B/P (MAP) 134/109 Pulse Ox 95 O2 Delivery Nasal Cannula Physical Exam General Appearance: The patient is alert, has no immediate need for airway protection and no signs of toxicity. NAD Eyes: Pupils equal and round no pallor or injection. ENT, Mouth: Mucous membranes are moist. Respiratory: There are no retractions, lungs are clear to auscultation. Cardiovascular: Regular rate and rhythm. Gastrointestinal: Abdomen is soft and non tender, no masses, bowel sounds normal. Neurological: No focal neuro deficits Skin: Warm and dry, no rashes. Musculoskeletal: Neck is supple non tender. + lumbar midline back pain Extremities are nontender, nonswollen and have full range of motion. DIFFERENTIAL DIAGNOSIS: After history and physical exam differential diagnosis was considered for back pain including but not limited to muscular pain, herniated disc, spine fracture, intra-abdominal causes and urinary tract infection, postoperative infection Medical Decision Making Data Points Result Diagram: 12/09/18 1518 12/09/18 1518 Laboratory Hematology Test 12/09/18 15:18 12/09/18 16:57 Red Blood Count 4.07 M/uL (4.17-5.56) Mean Corpuscular Volume 95.7 fL (80.0-96.0) Mean Corpuscular Hemoglobin 32.2 pg (26.0-33.0) Mean Corpuscular Hemoglobin Concent 33.6 g/dL (32.0-36.0) Red Cell Distribution Width 12.7 % (11.5-14.5) Mean Platelet Volume 7.3 fL (7.2-11.1) Neutrophils (%) (Auto) 60.7 % (39.4-72.5) Lymphocytes (%) (Auto) 24.3 % (17.6-49.6) Monocytes (%) (Auto) 14.2 % (4.1-12.4) Eosinophils (%) (Auto) 0.7 % (0.4-6.7) Basophils (%) (Auto) 0.1 % (0.3-1.4) Nucleated RBC Relative Count (auto) 0.1 /100WBC Neutrophils # (Auto) 1.7 K/uL (2.0-7.4) Lymphocytes # (Auto) 0.7 K/uL (1.3-3.6) Monocytes # (Auto) 0.4 K/uL (0.3-1.0) Eosinophils # (Auto) 0.0 K/uL (0.0-0.5) Basophils # (Auto) 0.0 K/uL (0.0-0.1) Nucleated RBC Absolute Count (auto) 0.00 K/uL Sodium Level 140 mmol/L (137-145) Potassium Level 4.1 mmol/L (3.5-5.0) Chloride Level 101 mmol/L (98-107) Carbon Dioxide Level 32 mmol/L (22-31) Blood Urea Nitrogen 21 mg/dl (7-18) Creatinine 0.60 mg/dl (0.52-1.04) Glomerular Filtration Rate Calc > 60.0 Random Glucose 79 mg/dl (75-110) Lactate 0.6 mmol/L (0.7-2.1) Calcium Level 9.6 mg/dl (8.4-10.2) Total Bilirubin 0.2 mg/dl (0.2-1.3) Aspartate Amino Transf (AST/SGOT) 38 U/L (0-35) Alanine Aminotransferase (ALT/SGPT) 39 U/L (0-56) Alkaline Phosphatase 107 U/L (0-126) Total Protein 6.6 g/dl (6.3-8.2) Albumin 3.9 g/dl (3.5-5.0) Lipase 26 U/L (23-300) Urine Color Yellow Urine Clarity Clear Urine pH 5.0 pH (4.8-9.5) Urine Specific [place] 1.044 Urine Protein Negative mg/dL (NEGATIVE) Urine Glucose (UA) Negative mg/dL (NEGATIVE) Urine Ketones Trace mg/dL (NEGATIVE) Urine Blood Negative (NEGATIVE) Urine Nitrite Negative (NEGATIVE) Urine Bilirubin Negative (NEGATIVE) Urine Urobilinogen Negative mg/dL (0.2-1.9) Urine Leukocyte Esterase Negative (NEGATIVE) Urine RBC None /HPF (0-2/HPF) Urine WBC 1 /HPF (0-5/HPF) Urine Squamous Epithelial Cells Few /LPF (</=FEW) Urine Bacteria Negative /HPF (NONE-FEW) Urine Hyaline Casts Few /LPF (NONE-FEW) Urine Mucus None /HPF (NONE-FEW) Chemistry Test 12/09/18 15:18 12/09/18 16:57 White Blood Count 2.9 k/uL (4.5-11.0) Red Blood Count 4.07 M/uL (4.17-5.56) Hemoglobin 13.1 g/dL (12.0-16.0) Hematocrit 38.9 % (34.0-47.0) Mean Corpuscular Volume 95.7 fL (80.0-96.0) Mean Corpuscular Hemoglobin 32.2 pg (26.0-33.0) Mean Corpuscular Hemoglobin Concent 33.6 g/dL (32.0-36.0) Red Cell Distribution Width 12.7 % (11.5-14.5) Platelet Count 148 K/uL (150-450) Mean Platelet Volume 7.3 fL (7.2-11.1) Neutrophils (%) (Auto) 60.7 % (39.4-72.5) Lymphocytes (%) (Auto) 24.3 % (17.6-49.6) Monocytes (%) (Auto) 14.2 % (4.1-12.4) Eosinophils (%) (Auto) 0.7 % (0.4-6.7) Basophils (%) (Auto) 0.1 % (0.3-1.4) Nucleated RBC Relative Count (auto) 0.1 /100WBC Neutrophils # (Auto) 1.7 K/uL (2.0-7.4) Lymphocytes # (Auto) 0.7 K/uL (1.3-3.6) Monocytes # (Auto) 0.4 K/uL (0.3-1.0) Eosinophils # (Auto) 0.0 K/uL (0.0-0.5) Basophils # (Auto) 0.0 K/uL (0.0-0.1) Nucleated RBC Absolute Count (auto) 0.00 K/uL Glomerular Filtration Rate Calc > 60.0 Lactate 0.6 mmol/L (0.7-2.1) Calcium Level 9.6 mg/dl (8.4-10.2) Total Bilirubin 0.2 mg/dl (0.2-1.3) Aspartate Amino Transf (AST/SGOT) 38 U/L (0-35) Alanine Aminotransferase (ALT/SGPT) 39 U/L (0-56) Alkaline Phosphatase 107 U/L (0-126) Total Protein 6.6 g/dl (6.3-8.2) Albumin 3.9 g/dl (3.5-5.0) Lipase 26 U/L (23-300) Urine Color Yellow Urine Clarity Clear Urine pH 5.0 pH (4.8-9.5) Urine Specific [place] 1.044 Urine Protein Negative mg/dL (NEGATIVE) Urine Glucose (UA) Negative mg/dL (NEGATIVE) Urine Ketones Trace mg/dL (NEGATIVE) Urine Blood Negative (NEGATIVE) Urine Nitrite Negative (NEGATIVE) Urine Bilirubin Negative (NEGATIVE) Urine Urobilinogen Negative mg/dL (0.2-1.9) Urine Leukocyte Esterase Negative (NEGATIVE) Urine RBC None /HPF (0-2/HPF) Urine WBC 1 /HPF (0-5/HPF) Urine Squamous Epithelial Cells Few /LPF (</=FEW) Urine Bacteria Negative /HPF (NONE-FEW) Urine Hyaline Casts Few /LPF (NONE-FEW) Urine Mucus None /HPF (NONE-FEW) Urinalysis Test 12/09/18 16:57 Urine Color Yellow Urine Clarity Clear Urine pH 5.0 pH (4.8-9.5) Urine Specific [place] 1.044 Urine Protein Negative mg/dL (NEGATIVE) Urine Glucose (UA) Negative mg/dL (NEGATIVE) Urine Ketones Trace mg/dL (NEGATIVE) Urine Blood Negative (NEGATIVE) Urine Nitrite Negative (NEGATIVE) Urine Bilirubin Negative (NEGATIVE) Urine Urobilinogen Negative mg/dL (0.2-1.9) Urine Leukocyte Esterase Negative (NEGATIVE) Urine RBC None /HPF (0-2/HPF) Urine WBC 1 /HPF (0-5/HPF) Urine Squamous Epithelial Cells Few /LPF (</=FEW) Urine Bacteria Negative /HPF (NONE-FEW) Urine Hyaline Casts Few /LPF (NONE-FEW) Urine Mucus None /HPF (NONE-FEW) EKG/Imaging Imaging PATIENT NAME: Simona Arciniega : 1945 MR: [id number] V: [id number] EXAM DATE: ORDERING PHYSICIAN: CAROL HEREDIA TECHNOLOGIST: Location: [facility] Patient: Simona Arciniega : 1945 Visit/Account:[id number] Date of Sevice: 12/09/2018 CT ABDOMEN PELVIS W/ CON HISTORY: abd pain, back pain TECHNIQUE: Following administration of IV contrast contiguous axial images acquired through the abdomen/pelvis. Coronal and sagittal reformatting also performed.Dose Lowering Technique One of the following dose optimization techniques was utilized in the performance of this exam: Automated exposure control; adjustment of the mA and/or kV according to the patient's size; or use of an iterative reconstruction technique. Specific details can be referenced in the facility's radiology CT exam operational policy. CONTRAST: 75 mL Isovue-370 COMPARISON: December 05, 2018 FINDINGS: Visualized lung bases: Small amount of scarring in the inferior lingula Hepatobiliary: There postsurgical changes from a cholecystectomy with increasing intra and extrahepatic biliary ductal dilatation. Common bile duct n ow measures up to 1.4 cm, previously measuring up to 9 mm Spleen: Negative. Adrenals: Negative. Pancreas: Moderate pancreatic atrophy Kidneys ureters or bladder: Small left renal cyst remains unchanged Genitalia: Hysterectomy GI: Previous small bowel surgery with anastomotic staple line in the right lower quadrant again seen. This segment of bowel immediately adjacent to anastomosis is slightly patulous likely related to an atonic segment. Of the previously noted small bowel obstruction has resolved is diverticulosis in the sigmoid colon although no CT evidence of acute diverticulitis . There is a small amount of fat stranding seen in the mesentery just medial to the right-sided the colon which is slightly increased when compared to the prior study the proximal transverse colon appears mildly narrowed in this location and is best appreciated on image 59 of series 2. Period this finding is more prominent when compared to the prior study Vessels/spaces/nodes: There moderate atherosclerotic calcifications in the abdomen and pelvis Bones/soft tissues: Mild to moderate compression fracture of the superior endplate of L4 appear similar to the prior study Additional findings: None pertinent. IMPRESSION: Post surgical changes of the distal small bowel are again seen in the right lower quadrant. There has been interval resolution of the small bowel o bstruction when compared the prior study. There is increasing fat stranding within the anterior right side of the mesentery just medial to the right side of the colon and adjacent to a focal narrowing in the proximal transverse colon which appears much more prominent when compared the prior study. Given the relatively rapid appearance of this narrowing neoplastic processes not likely. This could represent a focal inflammatory process given the adjacent fat stranding. Clinical correlation ne eded There is increasing intrahepatic and extrahepatic Biliary ductal dilatation when compared to the most recent study. An obstructing calculus is not seen however given the relatively rapid change correlation with the clinical findings recommended. An MRCP may be helpful if further diagnostic imaging is desired ED Course/Re-evaluation ED Course Patient is a 72-year-old female here with complaints of midline lower back pain which she attributes to arthritis. Patient recently had a bowel obstruction and surgical operation. Patient was placed on hydrocodone without complete relief of symptoms. CT imaging showed a small area of colitis. I talked with Dr. Murphy briefly about this finding knee recommended placing the patient on antimicrobial therapy. Patient was placed on Augmentin 7 day course twice a day. Recommend follow-up in the outpatient setting with Dr. Murphy. Patient is given prescription for tramadol for breakthrough pain. Return precautions provided. Patient was stable at time of discharge. Decision to Disposition Date: Dec 09, 2018 Decision to Disposition Time: 17:20 Depart Departure Latest Vital Signs Vital Signs Date Time Temp Pulse Resp B/P (MAP) Pulse Ox O2 Delivery O2 Flow Rate FiO2 12/09/18 14:51 98.4 80 20 134/109 95 Nasal Cannula Impression: Primary Impression: Back pain Additional Impression: Colitis Condition: Improved Disposition: HOME OR SELF-CARE Referrals: BREONNA GAMBLE (PCP) JENNIFER MURPHY [place] Tramadol Hcl (TRAMADOL HCL) 50 Mg Tablet 50 MG PO Q6H PRN for PAIN, #12 TAB 0 Refills Prov: CAROL HEREDIA DO 12/09/18 Amoxicillin/Pot Clav 875-125 Mg Tab (AUGMENTIN 875-125 TABLET) 1 Each Tablet 1 TAB PO Q12H for 7 Days, #14 TAB Prov: CAROL HEREDIA DO 12/09/18 Patient Instructions: Back Pain (ED), Colitis (ED) Additional Instructions: Please take one tablet of Augmentin twice daily for 7 days. Please follow-up with Dr. Murphy in the outpatient setting. Please return promptly if you develop right upper quadrant abdominal pain. You may take 1 tramadol every 8 hours as needed for breakthrough pain control, you may complete your other prescription as prescribed. Please return immediately if you develop fevers, chills, nausea, vomiting, dark tarry stools, blood in the urine or stools. Problem Qualifiers CAROL HEREDIA DO Dec 09, 2018 14:47
[2018-12-09] MEDS ORDERED: NS(*) 0.9% 1000 ML BAG 1,000 ML IV ONE (15:02)
[2018-12-09] MEDS ORDERED: ONDANSETRON 4 MG/2 ML VIAL IVP ONE (15:05)
[2018-12-09] MEDS ORDERED: fentaNYL CITR 100 MCG/2 ML AMP IVP ONE (15:05)
[2018-12-09 15:34] LABS: PLATELET COUNT, AUTOMATED 148 K/uL (150-450)
[2018-12-09] MEDS ORDERED: DEXAMETHASONE SOD PHOS 10MG/ML IVP ONE (16:35)
--- NOTE | 2018-12-09 16:55 | RADIOLOGY IMAGING REPORT ---
FACILITY: [facility] - [place] PATIENT NAME: Simona Arciniega : 1945 MR: [id number] V: [id number] EXAM DATE: ORDERING PHYSICIAN: CAROL HEREDIA TECHNOLOG[place]: [place] [facility] [place]: [place] Arcin[place]ga : 1945 Visit/Account:[id number] Date of Sevice: 12/09/2018 CT ABDOMEN PELVIS W/ CON HISTORY: abd pain, back pain TECHNIQUE: Following administration of IV contrast contiguous axial images acquired through the abdom en/pelvis. Coronal and sagittal reformatting also performed.Dose Lowering Technique One of the following dose optimization techniques was utilized in the performance of this exam: Autom ated exposure control; adjustment of the mA and/or kV according to the patient's size; or use of an i terative reconstruction technique. Specific details can be referenced in the facility's radiology C T exam operational policy. CONTRAST: 75 mL Isovue-370 COMPARISON: December 05, 2018 FINDINGS: Visualized lung bases: Small amount of scarring in the inferior lingula Hepatobiliary: There postsurgical changes from a cholecystectomy with increasing intra and extrahepa tic biliary ductal dilatation. Common bile duct now measures up to 1.4 cm, previously measuring up t o 9 mm Spleen: Negative. Adrenals: Negative. Pancreas: Moderate pancreatic atrophy Kidneys ureters or bladder: Small left renal cyst remains unchanged Genitalia: Hysterectomy GI: Previous small bowel surgery with anastomotic staple line in the right lower quadrant again seen . This segment of bowel immediately adjacent to anastomosis is slightly patulous likely related to a n atonic segment. Of the previously noted small bowel obstruction has resolved is diverticulosis in the sigmoid colon although no CT evidence of acute diverticulitis . There is a small amount of fat stranding seen in the mesentery just medial to the right-sided the col on which is slightly increased when compared to the prior study the proximal transverse colon appears mildly narrowed in this location and is best appreciated on image 59 of series 2. Period this findi ng is more prominent when compared to the prior study Vessels/spaces/nodes: There moderate atherosclerotic calcifications in the abdomen and pelvis Bones/soft tissues: Mild to moderate compression fracture of the superior endplate of L4 appear du lar to the prior study Additional findings: None pertinent. IMPRESSION: Post surgical changes of the distal small bowel are again seen in the right lower quadrant. There meade s been interval resolution of the small bowel obstruction when compared the prior study. There is increasing fat stranding within the anterior right side of the mesentery just medial to the right side of the colon and adjacent to a focal narrowing in the proximal transverse colon which appe ars much more prominent when compared the prior study. Given the relatively rapid appearance of this narrowing neoplastic processes not likely. This could represent a focal inflammatory process given the adjacent fat stranding. Clinical correlation needed There is increasing intrahepatic and extrahepatic Biliary ductal dilatation when compared to the most recent study. An obstructing calculus is not seen however given the relatively rapid change correla tion with the clinical findings recommended. An MRCP may be helpful if further diagnostic imaging is desired Report Dictated By: Hyun Melgoza MD at 12/09/2018 4:32 PM Report E-Signed By: Hyun Melgoza MD at 12/09/2018 4:51 PM WSN:[email or web address]
[2018-12-09] MEDS ORDERED: AMOX-559 PO (17:24)
[2018-12-09] MEDS ORDERED: TRAM-420 PO (17:24)
[2018-12-09 17:30] VITALS: BP 153/77
== END 2018-12-09 17:42 | disposition home or self-care (01) ==
LOC: ER 14:57
DX: K52.89 Other specified noninfective gastroenteritis and colitis (principal); M54.5 Low back pain
CPT/HCPCS: 74177; 81001; 83605; 83690; 85025; 96361; 96374; 96375; 99284; J1100; J2405; J3010; J7030; 82040; 82247; 82310; 82374; 82435; 82565; 82947; 84075; 84132; 84155; 84295; 84450; 84460; 84520

== ENCOUNTER → 2019-01-21 | Outpatient (CLI) | payer MEDICARE ==
[2018-12-06 10:18] VITALS: BMI 30.3
[~2019-01-21] MED LIST changes: +AMOX-559 PO; +DOCU250C70 PO; +[UNRECOGNIZED DRUG - CODE] PO; -[UNRECOGNIZED DRUG - CODE] PO
--- NOTE | 2019-01-21 12:19 | RADIOLOGY IMAGING REPORT ---
FACILITY: [facility] [place] PATIENT NAME: Simona Arciniega : 1945 MR: [id number] V: [id number] EXAM DATE: ORDERING PHYSICIAN: BELLA HALL TECHNOLOGIST: Location: [facility] - [place] Patient: Simona Arciniega : 1945 Visit/Account:[id number] Date of Sevice: 01/21/2019 EXAMINATION: MRI Lumbar spine without intravenous contrast HISTORY: Low back pain. Leg pain. COMPARISON: 12/18/2017. TECHNIQUE: Multi-planar, multi-sequence lumbar spine MRI was performed without intravenous contrast administration. FINDINGS: Alignment: Stable minimal retrolisthesis of L2 over L3 and minimal anterior listhesis of L5 over S1. Vertebral marrow signal: Stable chronic L4 compression fracture with 25-50% loss of vertebral body he ight. No evidence of acute fracture. Distal thoracic cord: Negative. Conus: negative, terminates at the lower L2 vertebral body Cauda equina: Negative. Paravertebral soft tissues: Negative. Visualized abdominal and pelvic structures: 9 mm cyst in the posterior left kidney. Disc Spaces: Lower thoracic spine: Mild degenerative changes without stenosis. L1-2: Mild circumferential disc bulge and facet hypertrophy with no significant stenosis. No signifi cant change. L2-3: Circumferential disc bulge and facet hypertrophy. Mild spinal canal stenosis. Moderately kathleen re bilateral neural foraminal stenosis. No significant change. L3-4: Circumferential disc bulge with posterior annular fissure. Facet hypertrophy and ligamentum fl avum thickening. Moderate to severe bilateral lateral recess stenosis. Mild to moderate central spi nal canal stenosis. Moderate bilateral neural foraminal stenosis. No significant change. L4-5: Circumferential disc bulge, facet hypertrophy, and ligamentum flavum thickening. Mild spinal c anal stenosis. Moderately severe bilateral neural foraminal stenosis. No significant change. L5-S1: Circumferential disc bulge and facet hypertrophy. Mild spinal canal stenosis. Moderately sev ere bilateral neural foraminal stenosis. No significant change. IMPRESSION: 1. Multilevel degenerative disc disease and facet hypertrophy. No significant change compared with 12/18/2017. 2. Stable chronic L4 compression fracture. No evidence of acute fracture. Report Dictated By: Jose Lucero MD at 01/21/2019 12:09 PM Report E-Signed By: Jose Lucero MD at 01/21/2019 12:15 PM WSN:[email or web address]
--- NOTE | 2019-01-21 14:42 | RADIOLOGY IMAGING REPORT ---
FACILITY: [facility] - [place] PATIENT NAME: Simona Arciniega : 1945 MR: [id number] V: [id number] EXAM DATE: ORDERING PHYSICIAN: BELLA HALL TECHNOLOGIST: Location: [facility] - [place] Patient: Simona Arciniega : 1945 Visit/Account:[id number] Date of Sevice: 01/21/2019 DEXA Scan Clinical history: Postmenopausal. Comparison: DEXA scan from 11/12/2013. LUMBAR SPINE: The bone mineral density (BMD) measured from L1-L4 correlates with a Z-score of 1.2 and a T-score of -0.5 which is Normal as defined by the World Health Organization. The corresponding risk of fracture in the lumbar spine is 1-2 times increased compared with a young adult reference population. This v alue has decrease by 3.7 % since the prior study. More than 5% change is considered significant. HIP: Bone mineral density (BMD) measured in the LEFT total hip region correlates with a Z-score 0.2 and a T-score of -1.4 which is osteopenia as defined by the World Health Organization. The corresponding r isk of fracture in the hip is 2-3 times increased compared to a young adult reference population. Thi s value has decrease by 0.8 % since the prior study. More than 5% change is considered significant. T score left femoral neck -2 Bone mineral density (BMD) measured in the Femoral Neck region measures 0.762 g/cm?. IMPRESSION: 1. Lumbar spine: Normal. There has been 3.7% decrease in the bone mineral density since the previou s exam. 2. Left Total Hip: Normal. There has been 0.8% decrease in the bone mineral density since the previ ous exam. 3. Femoral Neck: Bone Mineral Density is 0.762 g/cm? The next DEXA scan of this patient should include the following sites: L1-L4 and the left hip. FRAX? WHO Fracture Risk Assessment Tool link: <http://www.shef.ac.uk/FRAX/tool.jsp?locationValue=9> PLEASE NOTE: 1) The World Health Organization defines low BMD as follows: T-score Normal > -1 Osteopenia < -1 and > -2.5 Osteoporosis < -2.5 without fractures Established osteoporosis < -2.5 with fractures 2) In general, you may wish to consider: Diagnosis Treatment Follow-up DEXA Normal BMD Prevention 2-3 years Osteopenia Prevention/therapy 1-2 years Osteoporosis Therapy Yearly 3) Fracture risk estimated from the T-score is more accurate for vertebral fractures (often spontane ous) than for hip fractures. Report Dictated By: Hyun Melgoza MD at 01/21/2019 2:36 PM Report E-Signed By: Hyun Melgoza MD at 01/21/2019 2:37 PM WSN:[email or web address]
== END ==
LOC: MRI 07:02
PROVIDERS: ATTEND Orthopaedic Surgery Orthopaedic Surgery of the Spine
DX: Z13.820 Encounter for screening for osteoporosis (principal); Z78.0 Asymptomatic menopausal state; M25.551 Pain in right hip; M43.16 Spondylolisthesis, lumbar region
CPT/HCPCS: 72148; 77080

== ENCOUNTER 2019-02-20 03:32 | Day surgery (SDC) | payer MEDICARE ==
[2018-12-06 10:18] VITALS: Ht 144.8 cm; Wt 59.9 kg
[2019-02-20] VITALS (7 sets, daily range): BP systolic 120–145; BP diastolic 71–86
[~2019-02-20] VITALS: Ht 144.8 cm; Wt 59.9 kg
[~2019-02-20 03:32] MED LIST changes: -OMEP-125 PO; +OMEP-126 PO; -TRAZ50TA34 PO; +TRAZ50TA52 PO
[2019-02-20] MEDS ORDERED: LIDOCAINE MPF 1% 5 ML VIAL ONE (08:51)
[2019-02-20] MEDS ORDERED: PROPOFOL EMUL(*) 10MG/ML 20 ML 40 ML ONE (08:51)
[2019-02-20] MEDS ORDERED: LIDOCAINE/SOD BICARB 8.4% SYR ID ONE (09:15)
[2019-02-20] MEDS ORDERED: NORMOSOL R SOLN(*) 1000 ML BAG 1,000 ML IV PRN (09:15)
--- NOTE | 2019-02-20 12:00 | Short(Outpt) Discharge Summary ---
Discharge Summary Reason for Hosp/Final Diag: (1) Colitis Status: Acute Hospital Course & Plan: pt presented for colonoscopy. she tolerated the procedure well. she will be discharged home when criteria met. Departure Discharge to: Home Discharge Instructions Home Meds Active Scripts Ropinirole Hcl (ROPINIROLE HCL) 1 Mg Tab, 2 MG PO QHS, #30 TAB Prov:LEIGHA FELIZ DO 04/24/14 Reported Medications Tramadol Hcl (TRAMADOL HCL) 50 Mg Tablet, 50 MG PO BID, TAB 02/13/19 Docusate Sodium (DOCUSATE SODIUM) 250 Mg Capsule, 500 MG PO QDAY, CAPSULE 01/05/19 Gabapentin (GABAPENTIN) 300 Mg Capsule, 300 MG PO HS for PAIN, CAPSULE TAKE ONE CAPSULE BY MOUTH EVERY NIGHT AT BEDTIME FOR NERVE PAIN 12/06/18 Ascorbic Acid (VITAMIN C) 1,000 Mg Tablet, 1000 MG PO BID 07/01/16 Hydroxyzine Hcl (HYDROXYZINE HCL) 25 Mg Tablet, 25 MG PO Q4-6H PRN for ANXIETY 07/01/16 Levothyroxine Sodium (LEVOTHYROXINE SODIUM) 100 Mcg Tablet, 200 MCG PO QAM, TAB 07/01/16 Omeprazole (OMEPRAZOLE) 20 Mg Capsule.dr, 1 CAP PO QDAY, CAP 03/08/16 Oxygen (OXYGEN) Inha, 2.5 L INH NIGHT AND PRN, L 03/08/16 Trazodone Hcl (TRAZODONE HCL) 50 Mg Tablet, 1 TAB PO QHS, #270 11/10/15 Duloxetine HCl (Duloxetine HCl) 60 Mg Capsule.dr, 1 TAB PO DAILY, #90 11/10/15 Multivitamin (DAILY VITAMIN) 1 Each Tablet, 1 EACH PO DAILY 09/16/14 Acetaminophen (ACETAMINOPHEN) 500 Mg Tablet, 1000 MG PO Q6H PRN for PAIN, TAB 09/16/14 Lisinopril (LISINOPRIL) 5 Mg Tablet, 5 MG PO HS 09/24/13 Discontinued Reported Medications Celecoxib (CELEBREX) 100 Mg Capsule, 100 MG PO BID PRN for PAIN, CAPSULE 12/06/18 Diet: Regular Activity: As Tolerated Special Instructions: we will call you in 10 days with results. JENNIFER CASTILLO Feb 20, 2019 12:00
== END 2019-02-20 14:10 | disposition home or self-care (01) ==
LOC: OR 03:32
PROVIDERS: ATTEND Surgery
DX: D12.4 Benign neoplasm of descending colon (principal); I78.1 Nevus, non-neoplastic
CPT/HCPCS: 00811; 45380; 88305; J2001; J2704

== ENCOUNTER → 2019-04-29 | Outpatient (CLI) | payer MEDICARE ==
[2018-12-06 10:18] VITALS: BMI 30.3
--- NOTE | 2019-04-29 11:32 | RADIOLOGY IMAGING REPORT ---
FACILITY: [facility] PATIENT NAME: Simona Arciniega : 1945 MR: [id number] V: [id number] EXAM DATE: ORDERING PHYSICIAN: BREONNA GAMBLE TECHNOLOGIST: Location: [facility] [place] Patient: Simona Arciniega : 1945 Visit/Account:[id number] Date of Sevice: 04/29/2019 L-SPINE 2 OR 3 VIEW HISTORY: Postsurgical back pain Additional history: None COMPARISON: Comparison made to preoperative MRI lumbar spine 01/21/2019 and lumbar spine radiographs 03/04/2014 FINDINGS: Patient status post PLIF L5-S1 with a disc prosthesis in place and pedicle screws in L5 and S1 verteb ral bodies. There is a very minimal 2-3 mm anterolisthesis L5-S1 which is unchanged as far back as . Orthopedic hardware appears appropriately positioned. There is a very prominent L4 superior endplate concavity compatible with a Schmorl's node which is un changed as far back as 2013. Disc space height is well-maintained throughout the lumbar spine. See comparison MRI regarding multilevel degenerative disc disease. IMPRESSION: Patient status post PLIF L5-S1 with minimal grade 1 anterolisthesis at L5-S1 unchanged from presurgic al exam.. Report Dictated By: Justin Gannon MD at 04/29/2019 11:15 AM Report E-Signed By: Justin Gannon MD at 04/29/2019 11:24 AM [id number]:[email or web address]
--- NOTE | 2019-04-29 12:12 | RADIOLOGY IMAGING REPORT ---
FACILITY: [facility] [place] PATIENT NAME: Simona Arciniega : 1945 MR: [id number] V: [id number] EXAM DATE: ORDERING PHYSICIAN: BREONNA GAMBLE TECHNOLOGIST: [facility] Patient: Simona Arciniega : 1945 Visit/Account:[id number] Date of Sevice: 04/29/2019 XR THORACIC SPINE 3 V HISTORY: Pain Additional history: None COMPARISON: Comparison lumbar spine same date. Patient status post L5-S1 PLIF. Comparison also mad e to lateral view chest x-ray 05/05/2018 FINDINGS: No compression fractures are seen in the thoracic spine. There is moderate anterior reactive endplat e hypertrophic changes seen at T11-12 suggestive of degenerative disc disease. This is progressed si nce the comparison 2018 exam. Minimal endplate spondylitic changes seen elsewhere. No definite disc space narrowing. IMPRESSION: Probable T11-12 degenerative disc disease. Exam otherwise unremarkable for age. Report Dictated By: Justin Gannon MD at 04/29/2019 11:59 AM Report E-Signed By: Justin Gannon MD at 04/29/2019 12:03 PM [id number]:[email or web address]
== END ==
LOC: RAD 10:30
PROVIDERS: ATTEND Nurse Practitioner Family
DX: M51.34 Other intervertebral disc degeneration, thoracic region (principal); G89.18 Other acute postprocedural pain
CPT/HCPCS: 72072; 72100